=== PATIENT | male | born 1970 | race Caucasian/White ===

== ENCOUNTER 2018-05-24 00:50 | Outpatient (CLI) | payer BC, SELFPAY ==
--- NOTE | 2018-05-24 14:42 | DI.MRI_ITS ---
SYMPTOMS/DIAGNOSIS: NECK PAIN WITH ARM NUMBNESS MRI OF THE CERVICAL SPINE: Routine noncontrast examination was performed. There is mild patient motion artifact. There is normal signal in the spinal cord. No evidence of tonsillar ectopia is present. At C6-C7, there is a mild diffuse disc bulge, but no central spinal canal stenosis is seen. It appears to be eccentric to the right, causing moderate right neural foraminal stenosis. No significant left neural foraminal stenosis is present. The remaining disc levels show no focal disc herniation, central spinal canal or neural foraminal stenosis. Marrow signal is within normal limits. IMPRESSION: C6-C7 asymmetric disc bulge to the right and right lateral soft tissues causing moderate right neural foraminal stenosis.
== END 2018-05-24 01:10 ==
PROVIDERS: PCP Family Medicine; Visit Provider Family Medicine
DX: M54.2 Cervicalgia (principal); R20.0 Anesthesia of skin; M50.223 Other cervical disc displacement at C6-C7 level; M48.02 Spinal stenosis, cervical region
CPT/HCPCS: 72141

== ENCOUNTER 2018-08-26 16:50 | Outpatient (CLI) | payer BC, SELFPAY ==
--- NOTE | 2018-08-26 16:03 | DI.RAD_ITS ---
SYMPTOM/DIAGNOSIS: RT SHOULDER PAIN, M25.511 RIGHT SHOULDER: Five views. Mild hypertrophic changes are seen at the acromioclavicular joint. The glenohumeral joint is well maintained. The bones are intact and normally mineralized. The soft tissues are unremarkable. IMPRESSION: Mild degenerative changes of the right AC joint.
== END 2018-08-26 17:10 ==
PROVIDERS: PCP Family Medicine; Visit Provider Neurological Surgery
DX: M25.511 Pain in right shoulder (principal); M19.011 Primary osteoarthritis, right shoulder
CPT/HCPCS: 73030

== ENCOUNTER 2018-09-09 00:43 | Outpatient (CLI) | payer BC, SELFPAY ==
--- NOTE | 2018-09-09 08:45 | DI.MRI_ITS ---
SYMPTOM/DIAGNOSIS: RT SHOULDER PAIN WITH RADIATING PAIN, RT ARM NUMBNESS, R20.0, M25.511 RIGHT SHOULDER MRI: Routine noncontrast examination was performed. There are no priors for comparison. The supraspinatus, infraspinatus and teres minor tendons are intact. No evidence of a tear is seen. There is mild intermediate signal and thickening of the subscapularis tendon which may represent tendinosis. The muscles show normal signal and size. No significant muscular fatty atrophy is appreciated. The biceps tendon has a normal appearance and location. The glenoid labrum appears unremarkable on this noncontrast examination. The ligaments are intact. There are mild hypertrophic changes seen at the acromioclavicular joint. Marrow signal is otherwise within normal limits. No evidence of an occult fracture or avascular necrosis is identified. No soft tissue mass or focal fluid collections are appreciated. IMPRESSION: 1. Subscapularis tendinosis. No evidence of a rotator cuff tear, 2. Mild osteoarthritis of the right acromioclavicular joint.
== END 2018-09-09 01:03 ==
PROVIDERS: PCP Family Medicine; Visit Provider Neurological Surgery
DX: M25.511 Pain in right shoulder (principal); M75.81 Other shoulder lesions, right shoulder; M19.011 Primary osteoarthritis, right shoulder; R20.0 Anesthesia of skin
CPT/HCPCS: 73221

== ENCOUNTER 2019-03-06 00:36 | Outpatient (CLI) | payer OTHER, SELFPAY ==
--- NOTE | 2019-03-06 08:42 | DI.MRI_ITS ---
SYMPTOM/DIAGNOSIS: BILATERAL RADICULOPATHY, LOW BACK PAIN M54.5 LUMBAR MRI: The study was carried out according to the usual protocol. Sagittal T2, sagittal T-1 and sagittal T-1 STIR and T2 axial and T2 axial MSMA and T-1 coronal pulsed sequences were performed. At L1-2 the disc is normal. The facet joints are intact. There is no evidence of spinal stenosis. At L2-3 there is no evidence of disc pathology. The facet joints are intact and there is no evidence of spinal stenosis. At L3-4 diminished disc signal would be consistent with partial desiccation. A small disc bulge is noted. There are mild facet joint degenerative changes and no evidence of spinal stenosis. At L4-5 diminished disc signal is identified. A small subligamentous disc herniation is evident. There is moderate facet joint DJD and no evidence of spinal stenosis. At L5-S1 diminished disc signal is also noted. There is no evidence of a disc herniation. Moderate facet joint DJD is apparent and there is no evidence of significant spinal stenosis. No intrinsic abnormality involving the lower dorsal cord conus or phylum terminale is seen.. SUMMARY: Findings consistent with degenerative disc disease and DJD with no evidence of significant spinal stenosis.
== END 2019-03-06 00:56 ==
PROVIDERS: PCP Family Medicine; Visit Provider Nurse Practitioner Family
DX: M54.5 Low back pain (principal); M54.17 Radiculopathy, lumbosacral region; M51.17 Intervertebral disc disorders with radiculopathy, lumbosacral region; M47.27 Other spondylosis with radiculopathy, lumbosacral region
CPT/HCPCS: 72148

== ENCOUNTER 2019-04-05 20:51 | Inpatient (IN) | payer BC, SELFPAY ==
[2019-04-05] VITALS (22 sets, daily range): BP systolic 115–138; BP diastolic 67–91; PULSE 79–120; RESP 12–28; TEMP 37.2; O2SAT 94–99
--- NOTE | 2019-04-05 21:07 | DI.CT_ITS ---
SYMPTOM/DIAGNOSIS: HEMOPTYSIS, RIGHT SIDED CHEST PAIN CTA CHEST: 04/05 CT angiography was performed with multi slice acquisition and multi planar and 3D reconstruction. CT angiography of the chest was performed with a bolus infusion of 100 cc Omnipaque 350. Images obtained through the upper abdomen show unremarkable appearance of visualized portions of liver, spleen, pancreas, adrenals and kidneys. The thoracic aorta is normal in appearance. There are multiple pulmonary emboli seen bilaterally predominantly in the lower lobe, pulmonary arterial circulation right greater than left and these involve segmental and subsegmental vessels No central pulmonary embolus identified. There are peripheral streaky areas of increased radiodensity in areas of atelectasis and/or consolidation in the right lung base with an associated small right pleual effusion. The findings are suspicious for pulmonary infarction. Otherwise, lungs are generally clear. No mediastinal or hilar adenopathy. CONCLUSION: Findings consistent with multiple pulmonary emboli. Findings were communicated to Dr. Jacinto in the E.R. 4 p.m. 04/06
--- NOTE | 2019-04-05 21:08 | W.ED.GENAD ---
Discharge Plan Disposition Patient Disposition: [facility] INPATIENT Condition: Improving Discharge Details Chief Complaint: Chest Pain Clinical Impression: Community acquired pneumonia, Cough with hemoptysis Primary Care Provider: Jarvis Camilo ED Provider: Amari Juarez Home Meds and New Rx's Prescriptions: No Action sildenafil [Viagra] 100 mg tablet 100 mg PO DAILY PRN (Reason: erectile dysfunction) Qty: 12 RF: 10 bupropion HCl [Wellbutrin SR] 150 mg tablet sustained-release 12 hr 150 mg PO QAM Qty: 90 RF: 3 Hold Instructions: None citalopram 20 mg tablet 20 mg PO BID Qty: 180 RF: 3 sumatriptan succinate 100 mg tablet 100 mg PO as directed Qty: 6 RF: 2 Shingrix Adjuvant Component-PF suspension 0.5 ml IM DAILY Qty: 0.5 RF: 1 lidocaine 5 % adhesive patch,medicated 1 patch TP DAILY Qty: 15 RF: 0 cyclobenzaprine 5 mg tablet 5 mg PO TID PRN (Reason: muscle spasm) Qty: 14 RF: 0 calcium carbonate [Tums Ultra] 400 MG tablet,chewable 400 mg PO PRN RF: 0 Medical Decision Making 49-year-old male with no past medical history who presents today for evaluation of right-sided chest pain and hemoptysis. Patient is a known tobacco smoker for greater than 35 years. Symptoms began yesterday his right-sided chest pain is both positional with an associated cough. Hemoptysis began yesterday. No exertional component. He denies any falls or recent trauma. Notable pleuritic component. Physical exam demonstrates mild to moderate tachycardia at 1 10-1 20. Intact radial pulses bilaterally, brisk capillary refill in all extremities, normal neurologic exam for upper and lower extremities. Normal vascular exam for upper and lower extremities. Bedside limited ultrasound shows no signs of significant right heart strain or pericardial effusion. Unable to visualize aortic arch. Differential includes PE, dissection, severe bronchitis or pneumonia versus malignancy. We will get a CT angios for further evaluation of the chest, perform a cardiac work-up, rehydrate and reassess. 11 PM Patient's laboratory work-up has returned, mild elevation in white count, mild left shift. No bandemia. Renal function stable, electrolytes benign. Troponin EKG unremarkable. VBG shows no signs of CO2 retention. CT scan results have returned and per virtual radiology show no evidence of PE or dissection. There is scattered irregular groundglass linear opacities in that are noted that are suspicious for multifocal pneumonia. In conjunction with the patient's white count I am concerned for infectious etiology. We will start Rocephin and doxycycline. We did ambulate the patient oxygen saturation remained stable however heart rate increased back up to 120. While resting his heart rate is in the 90s. Although the patient is feeling better I do feel that with his white count, notable CT findings, his hemoptysis and his notably increased heart rate I do feel that he would benefit from inpatient admission. I discussed the case with the hospitalist Dr. Mora, he agrees with assessment and plan. I have extensively reviewed the treatment plan with the patient. I have addressed all patient concerns at this time. I have also discussed the plan with the admitting physician and they agree with the current assessment and plan and have agreed to assume responsibility for the patient. All parties demonstrate verbal understanding and agreement with our assessment and plan at this time. EKG 20: 56 Rate 114, FL 164, QTc 430, QRS 110, sinus tachycardia, incomplete right bundle branch block, inverted T wave in V1, no significant ST elevations or depressions. No significant Q waves no evidence of STEMI IMPRESSION: 1. Motion artifact limits evaluation of the basilar subsegmental pulmonary arteries. Otherwise no pulmonary embolism. 2. Scattered irregular groundglass and linear right lung consolidation suspicious for multifocal infectious/inflammatory process such as pneumonia. Correlate clinically. 3. Emphysematous changes. Thank you for allowing us to participate in the care of your patient. Dictated and Authenticated by: Harvinder Bear MD 04/05/2019 10:34 PM Eastern Time ([place] & [place]) HPI General Date/Time Provider Initiated Documentation: 04/05/19 20:56. HPI Narrative: This is a 49-year-old male who denies any significant medical problems aside for occasional headaches, and mild depression who presents today for evaluation of right-sided chest pain. Patient states that yesterday afternoon while eating dinner he developed mild to moderate right-sided pain in his lung, made worse with breathing. He has also had an associated mild cough for the last 3 to 4 days. It was nonproductive until last night when he began developing hemoptysis. Pain is positional, worse with sitting upright, improved by laying on the right-hand side. He does have a long history of tobacco abuse for greater than 35 years. He denies any arm neck or shoulder pain. He denies any history of cardiac disease. He denies any personal family history of aortic dissection or PE. Denies PE risk factors such as recent long car rides, immobilization, recent surgery, prior history of DVT or PE, family history of PE or DVT, morbid obesity, exogenous estrogen, history of cancer. He denies any tearing or ripping sensation in his chest. He denies any recent weight loss. 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 Since then he denies any exertional chest pain or dyspnea except for his symptoms today and yesterday. Patient denies any other complaints at this time. Related Data Home Medications Medication Instructions Recorded Confirmed calcium carbonate [Tums Ultra] 400 mg PO PRN tab.chew 09/25/14 04/05/19 sildenafil 100 mg tablet 100 mg PO DAILY PRN #12 tab 05/14/18 04/05/19 bupropion HCl 150 mg tablet,12 hr 150 mg PO QAM #90 tab 07/19/18 04/05/19 sustained-release citalopram 20 mg tablet 20 mg PO BID #180 tab-cap 07/19/18 04/05/19 adjuvant AS01B (PF)vial 1 of 2 0.5 ml IM DAILY #0.5 ml 11/15/18 11/15/18 sumatriptan succinate 100 mg tablet 100 mg PO as directed #6 tab-cap 11/15/18 04/05/19 lidocaine 5 % topical patch 1 patch TP DAILY #15 each 02/19/19 04/05/19 cyclobenzaprine 5 mg tablet 5 mg PO TID PRN #14 tab 03/21/19 04/05/19 Previous Rx's Medication Instructions Recorded sildenafil 100 mg tablet 100 mg PO DAILY PRN #12 tab 05/14/18 bupropion HCl 150 mg tablet,12 hr 150 mg PO QAM #90 tab 07/19/18 sustained-release citalopram 20 mg tablet 20 mg PO BID #180 tab-cap 07/19/18 adjuvant AS01B (PF)vial 1 of 2 0.5 ml IM DAILY #0.5 ml 11/15/18 sumatriptan succinate 100 mg tablet 100 mg PO as directed #6 tab-cap 11/15/18 lidocaine 5 % topical patch 1 patch TP DAILY #15 each 02/19/19 cyclobenzaprine 5 mg tablet 5 mg PO TID PRN #14 tab 03/21/19 Allergies Allergy/AdvReac Type Severity Reaction Status Date / Time aspartame Allergy Severe facial Verified 04/05/19 21:04 numbness; muscle spasms ranitidine HCl [From Zantac] AdvReac Severe Chest pain Verified 04/05/19 21:04 ibuprofen AdvReac Unknown ABDOMINAL Verified 04/05/19 21:04 PAIN General Stated Complaint: Chest Pain RAYMOND: 3 Review of Systems Review of Systems All systems reviewed & are unremarkable except as noted in HPI and below PFSH Medical History (Updated 04/05/19 @ 20:59 by Estelita Babin) Cervical disc disorder (Acute) Erectile dysfunction (Acute) GERD (gastroesophageal reflux disease) (Chronic) Migraine (Chronic) Social History Smoking/Tobacco Use Status: Current every day Tobacco Type: cigarettes Quit status: has quit before Second Hand Exposure: Yes Alcohol Intake: current Alcohol Intake frequency: holidays/special occasions only Alcohol type: hard liquor Drug use: Never Substance use type: does not use Caregiver/Support person: No Household members: spouse Housing: house Communication Needs: None Do you need help understanding health information?: Rarely Pets and animals: Yes Pets and animals: dog(s) Sexually active: Yes Do you think of yourself as: straight/heterosexual Current gender identity: male What is your relationship status?: How often do you talk on the phone with friends or family?: three or more times per week How often do you get together with friends or relatives?: once per week How often do you attend episcopalian or oriental orthodox services?: decline to answer Do you belong to any clubs or organized social groups?: no Panel score (0-1 are the most socially isolated patients): 2 What type of physical activity do you participate in: none Seatbelt use: always Helmet use: Yes Drive intox or ride w/intox transit driver: No Exam Narrative Exam Narrative: 1.Const: Well-nourished, Well-developed, appearing stated age 2.Eyes: PERRL, no conjunctival injection, and symmetrical lids. 3.ENT: Atraumatic external nose and ears. Moist MM. Neck: Symmetric, trachea midline, No thyromegaly. 4.CVS: +S1/S2, No murmurs or gallops. Peripheral pulses 2+ and equal in all extremities. Brisk capillary refill in all extremities. Radial pulses +2 bilaterally. 5.RESP: Unlabored respiratory effort. Clear to auscultation bilaterally. No wheezes rales or rhonchi. 6.GI: Soft, Nontender/Nondistended, No hepatosplenomegaly. No guarding or rebound. 7.MSK: Normocephalic/Atraumatic, Extremities w/o deformity or ttp No cyanosis or clubbing, Normal movement of all extremities. No calf tenderness. 8.Skin: Warm, Dry. No rashes or lesions. 9.Neuro: internal audit consultant II-XII grossly intact. Sensation grossly intact, no focal neurologic deficits. 10.Psych: (AAO) x3. Appropriate mood and affect Course Vital Signs Temperature 37.2 C 04/05/19 20:54 Pulse 120 H 04/05/19 20:54 Respiratory Rate 20 04/05/19 20:54 Blood Pressure 132/79 04/05/19 20:54 Pulse Oximetry 94 L 04/05/19 20:54 Temperature 37.2 C 04/05/19 20:54 Temperature Source Skin 04/05/19 20:54 Pulse 120 H 04/05/19 20:54 Respiratory Rate 20 04/05/19 20:54 Blood Pressure 132/79 04/05/19 20:54 Pulse Oximetry 94 L 04/05/19 20:54 Pain Level 10 04/05/19 20:54 Lab/Test Results Lab/Test Results: 04/05/19 21:07 Blood Blood Culture - Pending 04/05/19 21:07 Blood Blood Culture - Pending
[2019-04-05 21:17] LABS: BE (Venous) 4.7 mmol/L (-3-3); HCO3 (Venous) 28 mmol/L (22-28); HCT 44.8 % (40.0-50.0); HGB 15.1 g/dL (13.5-17.5); Mean Corp. HGB Concentration 33.7 g/dL (32.0-36.0); Mean Corpuscular Hemoglobin 32.1 pg (27.0-33.0); Mean Corpuscular Volume 95.1 fL (80-95); Mean Platelet Volume 10.2 fL (8.0-11.0); O2 Sat (Venous) 88 % (70-80); Platelet Count 270 x1000/uL (130-400); RBC 4.71 m/cumm (4.50-6.00); RBC Distribution Width 13.4 % (11.8-14.1); TCO2 (Venous) 25 mmol/L (22-29); White Blood Cell Count 12.48 k/cumm (4.4-10.8); pCO2 (Venous) 39 mm/Hg (34-47); pH (Venous) 7.47 (7.32-7.43); pO2 (Venous) 50 mm/Hg (28-44)
[2019-04-05 21:19] LABS: Lactate 1.1 mmol/L (0.6-1.4)
[2019-04-05] MEDS: Lidocaine 5% Patch 1 PATCH TP (21:24)
[2019-04-05] MEDS: Normal Saline 1,000 ML 1000 ML IV ×2 (21:25→23:56)
[2019-04-05 21:31] LABS: Absolute Monocyte Count 1.37 k/cumm (0.11-0.7); Absolute Neutrophil Count 7.99 k/cumm (1.2-6.7)
[2019-04-05 21:32] LABS: Absolute Eosinophil Count 0.12 k/cumm (0.0-0.7); Diff Comment Manual Differential; PTT Activated 25.5 sec (21.0-31.4); Prothrombin Time 9.6 sec (9.3-11.0); RBC Morphology Normal
[2019-04-05 21:42] LABS: ALT 23 U/L (12-78); AST 13 U/L (15-37); Albumin 3.5 g/dL (3.4-5.0); Alkaline Phosphatase 51 U/L (46-116); Anion Gap 9.9 mmol/L (3-11); BUN 15 mg/dL (7-18); Bilirubin, Total 0.3 mg/dL (0.2-1.0); CO2 26.1 mmol/L (21.0-32.0); CREATININE 0.98 mg/dL (0.70-1.30); Calcium 9.2 mg/dL (8.5-10.1); Chloride 103 mmol/L (98-107); Glucose 124 mg/dL (70-100); NT-proBNP 62 pg/mL; Potassium 3.9 mmol/L (3.5-5.1); Sodium 139 mmol/L (136-145); TSH (W/Ref FT4) 2.14 uIU/mL (0.36-3.74); Total Protein 7.4 g/dL (6.4-8.2)
[2019-04-05 21:44] LABS: Troponin I < 0.05 ng/mL (0.00-0.06)
[2019-04-05] MEDS: MORPHine 10 MG/ML VIAL 4 MG IVP ×2 (21:52→23:49)
[2019-04-05] MEDS: Omnipaque 350 MG/ML 100 ML BTL IJ (22:19)
--- NOTE | 2019-04-05 22:34 | DI.VRAD_ITS ---
EXAM: CT Angiography Chest With Contrast EXAM DATE/TIME: 04/05/2019 9:08 PM CLINICAL HISTORY: 49 years old, male; Right-sided chest pain; Patient HX: Hemoptysis; R sided chest pain TECHNIQUE: Imaging protocol: Axial computed tomographic angiography images of the chest with intravenous contrast using CT angiography protocol. Coronal and sagittal reformatted images were created and reviewed. 3D rendering: MIP reconstructed images were created and reviewed. COMPARISON: CR (CHEST, RT) 12/21/2015 12:37 PM FINDINGS: Pulmonary arteries: Pulmonary artery opacification is adequate. Motion artifact limits evaluation of the basilar subsegmental pulmonary arteries. Otherwise no pulmonary embolism. Aorta: No aortic aneurysm. No aortic dissection. Thyroid: No mass. Lungs: There are moderate bilateral upper lobe predominant emphysematous changes. There is irregular groundglass and linear consolidation within the right middle and lower lobes, lesser extent of the inferior right upper lobe. No consolidation or mass within the left lung. Pleural space: There is trace right pleural effusion. No pneumothorax or pleural effusion. Heart: No cardiomegaly. No pericardial effusion. Lymph nodes: Unremarkable. No pathologically enlarged lymph nodes. Bones/joints: Unremarkable. No acute fracture. Soft tissues: No focal abnormality. IMPRESSION: 1. Motion artifact limits evaluation of the basilar subsegmental pulmonary arteries. Otherwise no pulmonary embolism. 2. Scattered irregular groundglass and linear right lung consolidation suspicious for multifocal infectious/inflammatory process such as pneumonia. Correlate clinically. 3. Emphysematous changes. Dictated and Authenticated by: Harvinder Bear MD. Ordering:PARAG Fitzpatrick MD
[2019-04-05] MEDS: cefTRIAXone 1 GM/50 ML BAG IVPB (23:18)
[2019-04-05] MEDS: DOXYCYCLINE 100 MG in Normal Saline 100 ML IVPB (23:49)
[2019-04-06] VITALS (14 sets, daily range): BP systolic 105–134; BP diastolic 65–91; PULSE 74–109; RESP 16–20; TEMP 36.4–37.2; O2SAT 93–99
--- NOTE | 2019-04-06 00:05 | W.PM.HP.N ---
Date of service: 04/06/19 Time of Service: 00:06 Assessment and Plan (1) Community acquired pneumonia of right lung: Current visit: Yes Status: Acute continue Ceftriaxone but at increased dose of 2 gm Q24h, and doxycycline 100 mg iv Q12hr (macrolide and levaquin are relative contraindications w/ his use of citalopram d/t QTC prolongation and he already has an IVCD on his EKG). I will add iv corticosteroids to help w/ the acute inflammation particularly with his pleurisy. Check sputum and blood cultures and procalcitonin levels as well as checking atypical studies (i.e. Legionella and Mycoplasma). He will need follow up imaging of his chest once his acute pneumonic symptoms resolve as there is concern for underlying malignancy given his weight loss and his hemoptysis. Also he is due for follow up c-scope once his pneumonia clears (it has been 5 yrs since his c-scope and he has hx of colon polyps and FH of colon CA). Qualifiers: Lung location: lower lobe of lung Qualified Code(s): J18.1 - Lobar pneumonia, unspecified organism (2) Pleurisy: Current visit: Yes Status: Acute narcotic analgesic (cough medications w/ phenergan and codeine) and iv corticosteroids. History of Present Illness Chief Complaint: cough, shortness of breath, hemoptysis Narrative: 49-year-old male smoker presents to the emergency department with acute right-sided pleuritic chest pain along with hemoptysis that began yesterday. This is also associated with shortness of breath. Patient states he had brief similar episode back around February 12 in which she had some pleuritic chest pain and a cough that went away after 3 or 4 days but not associated with any hemoptysis. He said he had another episode about 3 or 4 weeks ago but feels that it was mitigated by the steroids that he was put on for his ruptured disc. He has been followed in occupational medicine for a back injury which she has had low back pain over the lumbar region with radicular pain down his right leg. His past medical history also includes a history of migraine headaches as well as a [id number] history of smoking as well as a lumbar degenerative disc disease and a herniated L4-L5 disc herniation. Patient has no exertional component to his chest pain. He has developed exertional dyspnea as well as dyspnea at rest. His right-sided chest pain is worse with coughing or deep breathing or with sitting up. Pain is better when he is lying on his right side. There is been no recent contacts with respiratory illness although he noted that 1 of his coworkers was sick with pneumonia back in November. Patient denies any history of pulmonary emboli. He also denies any family history for PE or DVT and no family history for aortic aneurysms. There is a family history for colon cancer in his paternal grandfather. Patient himself has had a history of colon polyps and had a colonoscopy with a polypectomy about 5 years ago. Work-up in the emergency room demonstrate a leukocytosis of 12,480 with an increase in PMNs of 7900. Blood lactate level is normal at 1.1 and troponin was less than 0.05. CTA of the chest was performed and showed no pulmonary emboli. The basilar subsegmental arteries were not as well visualized due to motion artifact. He has evidence of emphysema as well as right-sided pneumonic consolidation with scattered irregular groundglass opacities and linear consolidation consistent with pneumonia. Treatment in the emergency room include obtaining blood cultures as well as initiation of ceftriaxone 1 g IV and doxycycline 100 mg. Patient is now admitted for treatment of a community-acquired pneumonia. Review of Systems Constitutional Reports body ache(s), Denies chills, Reports fatigue, Denies fever(s), Reports headache(s) and Reports weight loss Eyes Reports itchy eyes and Reports photophobia ENT Denies otalgia, Reports headache(s), Reports nasal congestion, Reports nasal discharge and Reports sinus pressure Cardiovascular Reports chest pain at rest, Reports rapid heart rate, Reports dyspnea and Reports dyspnea on exertion Respiratory Reports change in phlegm color, Reports cough, Reports hemoptysis, Reports excessive phlegm production, Reports pain on inspiration, Reports pain with cough, Reports dyspnea and Reports dyspnea on exertion Gastrointestinal Denies abdominal pain, Denies melena, Denies hematochezia and Reports constipation Genitourinary Reports system reviewed and no additional complaints, except as docu Musculoskeletal Reports back pain, Reports radiating pain into limb (right leg down to the knee) and Reports tingling Integumentary/Breasts Reports system reviewed and no additional complaints, except as docu Neurologic Reports headache(s), Reports radicular pain and Reports tingling Psychiatric Reports system reviewed and no additional complaints, except as docu Endocrine Reports fatigue and Reports heat intolerance Hematologic/Lymphatic Reports system reviewed and no additional complaints, except as docu Allergic/Immunologic Reports itchy eyes PFSH Medical History Benign colon polyp (Acute) Cervical disc disease (Chronic) Cervical disc disorder (Acute) Duodenitis (Inactive) Erectile dysfunction (Acute) GERD (gastroesophageal reflux disease) (Chronic) Migraine (Acute 01/09/17) Migraine (Chronic) Surgical History Colonoscopy - MAC Family History Father CAD (coronary artery disease) Heart disease Alzheimer's dementia Brother Hyperlipidemia Depression Brother Depression Hyperlipidemia Essential hypertension Maternal Grandfather Essential hypertension Maternal Grandmother Diabetes GREAT GRANDFATHER Myocardial infarction Paternal Grandfather Liver cirrhosis Colon cancer Paternal Grandmother Stroke Social History (Updated 04/06/19 @ 01:33 by Augustus Mora) Smoking/Tobacco Use Status: Current every day Tobacco Type: cigarettes Smoking packs per day: 1 Years smoked: 35 Quit status: has quit before Second Hand Exposure: Yes Alcohol Intake: current Alcohol Intake frequency: holidays/special occasions only Alcohol type: hard liquor Drug use: Never Substance use type: does not use Caregiver/Support person: No Household members: spouse Housing: house Communication Needs: None Do you need help understanding health information?: Rarely Pets and animals: Yes Pets and animals: dog(s) Sexually active: Yes Do you think of yourself as: straight/heterosexual Current gender identity: male What is your relationship status?: How often do you talk on the phone with friends or family?: three or more times per week How often do you get together with friends or relatives?: once per week How often do you attend quaker or temple services?: decline to answer Do you belong to any clubs or organized social groups?: no Panel score (0-1 are the most socially isolated patients): 2 What type of physical activity do you participate in: none Seatbelt use: always Helmet use: Yes Drive intox or ride w/intox route salesman and driver: No Meds Home Medications Medication Instructions Recorded Confirmed Type calcium carbonate [Tums Ultra] 400 mg PO PRN tab.chew 09/25/14 04/05/19 History sildenafil 100 mg tablet 100 mg PO DAILY PRN #12 tab 05/14/18 04/05/19 Rx bupropion HCl 150 mg tablet,12 hr 150 mg PO QAM #90 tab 07/19/18 04/05/19 Rx sustained-release citalopram 20 mg tablet 20 mg PO BID #180 tab-cap 07/19/18 04/06/19 Rx adjuvant AS01B (PF)vial 1 of 2 0.5 ml IM DAILY #0.5 ml 11/15/18 11/15/18 Rx sumatriptan succinate 100 mg tablet 100 mg PO as directed #6 tab-cap 11/15/18 04/05/19 Rx lidocaine 5 % topical patch 1 patch TP DAILY #15 each 02/19/19 04/05/19 Rx cyclobenzaprine 5 mg tablet 5 mg PO TID PRN #14 tab 03/21/19 04/05/19 Rx Allergies Allergy/AdvReac Type Severity Reaction Status Date / Time aspartame Allergy Severe facial Verified 04/05/19 21:04 numbness; muscle spasms ranitidine HCl [From Zantac] AdvReac Severe Chest pain Verified 04/05/19 21:04 ibuprofen AdvReac Unknown ABDOMINAL Verified 04/05/19 21:04 PAIN Exam Const General: cooperative and ill appearing acutely Orientation: alert, awake and oriented x3 HENMT Head: normal to inspection, no palpable skull fracture and normocephalic Ears: hearing grossly normal bilaterally and TM's normal bilaterally General nose exam: external nose normal, nares normal and nasal discharge purulent Face and sinus: normal facial exam Mouth: oral mucosae normal and oropharynx normal Throat: posterior oropharynx normal Eyes General: appearance normal, both eyes and all related structures Alignment and Position: alignment normal Periorbital: periorbital findings normal Eyelids: eyelids normal Conjunctivae: conjunctivae normal Sclera: sclerae normal Cornea: corneas normal Pupils: PERRL EOM: EOM intact bilaterally Direct ophthalmoscopy: normal light reflex Neck Neck: normal visual inspection, full ROM and no JVD Carotids: normal carotid upstroke Lymphatic: no lymphadenopathy noted Resp Effort & Inspection: normal respiratory effort and able to speak in complete sentences Auscultation: rales on the right Cardio Jugular venous pressure: no JVD Palpation: normal PMI Rate: regular rate Rhythm: regular rhythm Heart Sounds: S1 normal, S2 normal, normal, physiologic split S2, no gallops, no murmurs and no rubs Pulses: normal peripheral pulses GI Inspection: normal to inspection Palpation: soft and no hepatosplenomegaly Percussion: normal to percussion Auscultation: normal bowel sounds Neuro General: alert, awake, oriented x3, moves all extremities and no focal motor deficits Cranial Nerves: PERRL, EOM intact bilaterally, no nystagmus, facial strength normal and tongue midline Cognition: normal cognition Speech: speech normal Motor: muscle tone normal throughout, strength 5/5 throughout and no movement abnormalities noted Sensory Exam: no sensory deficits noted Extrem General: normal to inspection, normal capillary refill, no clubbing, cyanosis or edema and no calf tenderness Psych Appearance: grossly normal Mental Status: mental status grossly normal Speech and Movement: speech and movement normal Mood: congruent mood Affect: normal affect Attitude: cooperative Thought Process: normal Thought Content: normal Insight: insight good Judgment: judgment good Results Imaging EKG: image reviewed (sinus tachycardia rate of 114 bpm, no ischemic ST-T changes, non-specific IVCD) Imaging Studies: EXAM: CT Angiography Chest With Contrast EXAM DATE/TIME: 04/05/2019 9:08 PM IMPRESSION: 1. Motion artifact limits evaluation of the basilar subsegmental pulmonary arteries. Otherwise no pulmonary embolism. 2. Scattered irregular groundglass and linear right lung consolidation suspicious for multifocal infectious/inflammatory process such as pneumonia. Correlate clinically. 3. Emphysematous changes. Dictated and Authenticated by: Harvinder Bear MD. Labs : 04/05/19 21:00 04/05/19 21:00 Laboratory Results - last 24 hr 04/05/19 04/05/19 04/05/19 21:00 21:00 21:00 WBC 12.48 H RBC 4.71 Hgb 15.1 Hct 44.8 MCV 95.1 H MCH 32.1 MCHC 33.7 RDW 13.4 Plt Count 270 MPV 10.2 Immature Gran % See Differential Neutrophils % 64.0 Lymphocytes % 24.0 Monocytes % 11.0 Eosinophils % 1.0 Basophils % 0.0 Absolute Neutrophils 7.99 H Absolute Lymphocytes 3.00 Absolute Monocytes 1.37 H Absolute Eosinophils 0.12 Absolute Basophils 0.00 Differential Comment Manual differential RBC Morphology Normal PT INR APTT VBG pH VBG pCO2 VBG pO2 VBG HCO3 VBG Total CO2 VBG O2 Saturation VBG Base Excess Sodium 139 Potassium 3.9 Chloride 103 Carbon Dioxide 26.1 Anion Gap 9.9 BUN 15 Creatinine 0.98 Estimated GFR/1.73 m2 >= 60.00 Glucose 124 H Lactate 1.1 Calcium 9.2 Total Bilirubin 0.3 AST 13 L ALT 23 Alkaline Phosphatase 51 Troponin I < 0.05 NT-Pro-B Natriuret Pep 62 Total Protein 7.4 Albumin 3.5 TSH 2.14 04/05/19 04/05/19 21:00 21:00 WBC RBC Hgb Hct MCV MCH MCHC RDW Plt Count MPV Immature Gran % Neutrophils % Lymphocytes % Monocytes % Eosinophils % Basophils % Absolute Neutrophils Absolute Lymphocytes Absolute Monocytes Absolute Eosinophils Absolute Basophils Differential Comment RBC Morphology PT 9.6 INR 1.0 APTT 25.5 VBG pH 7.47 H VBG pCO2 39 VBG pO2 50 H VBG HCO3 28 VBG Total CO2 25 VBG O2 Saturation 88 H VBG Base Excess 4.7 H Sodium Potassium Chloride Carbon Dioxide Anion Gap BUN Creatinine Estimated GFR/1.73 m2 Glucose Lactate Calcium Total Bilirubin AST ALT Alkaline Phosphatase Troponin I NT-Pro-B Natriuret Pep Total Protein Albumin TSH Last Vital Signs Temp 37.2 C 04/05/19 20:54 Pulse 93 H 04/05/19 22:09 Resp 17 04/05/19 22:09 BP 135/83 04/05/19 22:09 Pulse Ox 94 L 04/05/19 21:46
[2019-04-06 00:58] LABS: Troponin I < 0.05 ng/mL (0.00-0.06)
[2019-04-06 01:07] LABS: Procalcitonin < 0.1 ng/mL
[2019-04-06] MEDS: cefTRIAXone 1 GM/50 ML BAG IVPB (01:22)
[2019-04-06] MEDS: Normal Saline 1,000 ML 100 ML IV (01:23)
[2019-04-06] MEDS: guaiFENesin 600 MG TABCR 1200 MG PO ×3 (01:29→20:21)
[2019-04-06] MEDS: methylPREDNISolone SUCC 125 MG VIAL 80 MG IVP (02:11)
[2019-04-06] MEDS: Normal Saline Flush 10 ML SYR IVP ×3 (02:12→21:39)
--- NOTE | 2019-04-06 04:51 | NUR.NOTE ---
Patient was admitted to the Med-Surg unit from the ER with a history of right sided chest pain that is not being relieved by pain medications. Patient is AxOx3 assessment done and charted.
[2019-04-06 07:23] LABS: Abs Immature Grans 0.03 k/cumm (0.0-0.09); Absolute Eosinophil Count 0.32 k/cumm (0.0-0.7); Absolute Monocyte Count 0.62 k/cumm (0.11-0.7); Absolute Neutrophil Count 10.58 k/cumm (1.2-6.7); Basophils % 0.2; Eosinophils % 2.5; HCT 45.9 % (40.0-50.0); HGB 15.4 g/dL (13.5-17.5); Immature Grans % 0.2; Mean Corp. HGB Concentration 33.6 g/dL (32.0-36.0); Mean Corpuscular Volume 95.2 fL (80-95); Mean Platelet Volume 10.5 fL (8.0-11.0); Monocytes % 4.9; Neutrophils % 83.2; Platelet Count 223 x1000/uL (130-400); RBC 4.82 m/cumm (4.50-6.00); RBC Distribution Width 13.5 % (11.8-14.1); White Blood Cell Count 12.72 k/cumm (4.4-10.8)
[2019-04-06 07:25] LABS: Absolute Basophil Count 0.03 k/cumm (0.0-0.2); Absolute Lymphocyte Count 1.14 k/cumm (1.2-3.4); Anion Gap 11.7 mmol/L (3-11); BUN 11 mg/dL (7-18); CO2 22.3 mmol/L (21.0-32.0); Calcium 8.9 mg/dL (8.5-10.1); Chloride 106 mmol/L (98-107); Glucose 122 mg/dL (70-100); Potassium 4.6 mmol/L (3.5-5.1); Sodium 140 mmol/L (136-145)
[2019-04-06 07:26] LABS: Troponin I < 0.05 ng/mL (0.00-0.06)
[2019-04-06] MEDS: Benzonatate 200 MG CAP PO ×3 (08:25→20:21)
[2019-04-06] MEDS: Citalopram 20 MG TAB PO (08:26)
[2019-04-06] MEDS: buPROPion-XL 150 MG TABCR PO (08:26)
--- NOTE | 2019-04-06 10:15 | W.PM.PROGNOT ---
Date of Service Date of service: 04/06/19 Time of Service: 10:15 Assessment and Plan (1) Community acquired pneumonia of right lung: Current visit: Yes Status: Acute Evidence of right sided infiltrates by CT. Patient with reported dyspnea, hemoptysis, and pleuritic chest pain. - Continue CAP coverage with Ceftriaxone, Doxycycline day #1. - Await Blood and Sputum culture results. - Continue steroids but change to PO Prednisone. - Continue anti-tussives. - Given tobacco history will ensure follow-up imaging as outpatient to ensure complete resolution and lack of other pathology. Qualifiers: Lung location: lower lobe of lung Qualified Code(s): J18.1 - Lobar pneumonia, unspecified organism (2) DVT prophylaxis: Current visit: Yes Status: Acute Hold off chemic DVT prophylaxis given current complaints of hemoptysis, and continue SCDs. Subjective Interval history since last seen: 49-year-old man with a history of tobacco use, admitted from [facility] Emergency Department on 04/05 with a diagnosis of CAP. Mr. Ortiz has a Past Medical History significant for chronic tobacco use, COPD, migraines, and back pain with radicular symptoms. He presented to the ED with an acute onset pleuritic chest pain, dyspnea, and cough with associated Hemoptysis. He also endorsed ill contact with a coworker who was sick with pneumonia a few months back. Work-up in the ED was significant for leukocytosis, and a CTA of the chest showed evidence of right sided pneumonia. He was initiated on IV antibiotics and admitted for further evaluation and treatment. This morning Mr. Ortiz reports mild improvement in his symptoms overall. No overnight events reported. Patient remains afebrile. Exam Narrative Exam Narrative: General: Patient appears ill but not toxic, AAOX3, NAD Neck: Supple CV: Regular with ectopy, mildly tachycardic, S1S2, No rubs, murmurs, or gallops. Pulmonary: Decreased right sided breath sounds, no wheezing Abdomen: + Bowel Sounds, soft, nontender, nondistended Vascular: No lower extremity edema Psych: Normal mood and affect. Objective Objective Clinical Data: Abnormal lab results 04/05/19 04/05/19 04/05/19 Range/Units 21:00 21:00 21:00 WBC 12.48 H (4.4-10.8) k/cumm MCV 95.1 H (80-95) fL Absolute Neutrophils 7.99 H (1.2-6.7) k/cumm Absolute Lymphocytes (1.2-3.4) k/cumm Absolute Monocytes 1.37 H (0.11-0.7) k/cumm VBG pH 7.47 H (7.32-7.43) VBG pO2 50 H (28-44) mm/Hg VBG O2 Saturation 88 H (70-80) % VBG Base Excess 4.7 H (-3-3) mmol/L Anion Gap (3-11) mmol/L Glucose 124 H (70-100) mg/dL AST 13 L (15-37) U/L 04/06/19 04/06/19 Range/Units 06:20 06:20 WBC 12.72 H (4.4-10.8) k/cumm MCV 95.2 H (80-95) fL Absolute Neutrophils 10.58 H (1.2-6.7) k/cumm Absolute Lymphocytes 1.14 L (1.2-3.4) k/cumm Absolute Monocytes (0.11-0.7) k/cumm VBG pH (7.32-7.43) VBG pO2 (28-44) mm/Hg VBG O2 Saturation (70-80) % VBG Base Excess (-3-3) mmol/L Anion Gap 11.7 H (3-11) mmol/L Glucose 122 H (70-100) mg/dL AST (15-37) U/L Vital Signs Temperature 36.5 C 04/06/19 09:54 Temperature Source Tympanic 04/06/19 09:54 Pulse 101 H 04/06/19 09:54 Pulse Rhythm Regular 04/06/19 08:38 Pulse 77 04/06/19 00:50 Respiratory Rate 16 04/06/19 09:54 Respiratory Effort 04/06/19 08:38 Respiratory Depth Normal 04/06/19 08:38 Respiratory Pattern Normal 04/06/19 08:38 Blood Pressure 107/69 04/06/19 09:54 Blood Pressure Mean 83 04/05/19 23:46 Pulse Oximetry 95 04/06/19 09:54 Oxygen Delivery Method Room Air 04/06/19 09:54 Oxygen Flow Rate 0 04/06/19 09:54 Pain Level 7 04/06/19 09:54 Intake & Output 04/05/19 04/05/19 04/06/19 11:59 23:59 11:59 Intake Total 1050 / 1050 150 / 150 Output Total 1000 / 1000 750 / 750 Balance 50 / 50 -600 / -600 Weight 98.3 kg 98.3 kg Intake: IV 1050 / 1050 150 / 150 Output: Urine 1000 / 1000 750 / 750 Other: Urine Color Yellow Urine Appearance Clear Voiding Methods Urinal Laboratory Results WBC 12.72 k/cumm (4.4-10.8) H 04/06/19 06:20 RBC 4.82 m/cumm (4.50-6.00) 04/06/19 06:20 Hgb 15.4 g/dL (13.5-17.5) 04/06/19 06:20 Hct 45.9 % (40.0-50.0) 04/06/19 06:20 MCV 95.2 fL (80-95) H 04/06/19 06:20 MCH 32.0 pg (27.0-33.0) 04/06/19 06:20 MCHC 33.6 g/dL (32.0-36.0) 04/06/19 06:20 RDW 13.5 % (11.8-14.1) 04/06/19 06:20 Plt Count 223 x1000/uL (130-400) 04/06/19 06:20 MPV 10.5 fL (8.0-11.0) 04/06/19 06:20 Immature Gran % 0.2 04/06/19 06:20 83.2 04/06/19 06:20 9.0 04/06/19 06:20 4.9 04/06/19 06:20 2.5 04/06/19 06:20 0.2 04/06/19 06:20 Absolute Neutrophils 10.58 k/cumm (1.2-6.7) H 04/06/19 06:20 Absolute Lymphocytes 1.14 k/cumm (1.2-3.4) L 04/06/19 06:20 Absolute Monocytes 0.62 k/cumm (0.11-0.7) 04/06/19 06:20 Absolute Eosinophils 0.32 k/cumm (0.0-0.7) 04/06/19 06:20 Absolute Basophils 0.03 k/cumm (0.0-0.2) 04/06/19 06:20 Manual differential 04/05/19 21:00 RBC Morphology Normal 04/05/19 21:00 PT 9.6 sec (9.3-11.0) 04/05/19 21:00 INR 1.0 (0.9-1.1) 04/05/19 21:00 APTT 25.5 sec (21.0-31.4) 04/05/19 21:00 VBG pH 7.47 (7.32-7.43) H 04/05/19 21:00 VBG pCO2 39 mm/Hg (34-47) 04/05/19 21:00 VBG pO2 50 mm/Hg (28-44) H 04/05/19 21:00 VBG HCO3 28 mmol/L (22-28) 04/05/19 21:00 VBG Total CO2 25 mmol/L (22-29) 04/05/19 21:00 VBG O2 Saturation 88 % (70-80) H 04/05/19 21:00 VBG Base Excess 4.7 mmol/L (-3-3) H 04/05/19 21:00 Sodium 140 mmol/L (136-145) 04/06/19 06:20 Potassium 4.6 mmol/L (3.5-5.1) 04/06/19 06:20 Chloride 106 mmol/L (98-107) 04/06/19 06:20 Carbon Dioxide 22.3 mmol/L (21.0-32.0) 04/06/19 06:20 11.7 mmol/L (3-11) H 04/06/19 06:20 BUN 11 mg/dL (7-18) 04/06/19 06:20 0.80 mg/dL (0.70-1.30) 04/06/19 06:20 >= 60.00 (mL/min/1.73m2) 04/06/19 06:20 Glucose 122 mg/dL (70-100) H 04/06/19 06:20 1.1 mmol/L (0.6-1.4) 04/05/19 21:00 Calcium 8.9 mg/dL (8.5-10.1) 04/06/19 06:20 Magnesium 2.0 mg/dL (1.8-2.4) 04/06/19 06:20 0.3 mg/dL (0.2-1.0) 04/05/19 21:00 AST 13 U/L (15-37) L 04/05/19 21:00 ALT 23 U/L (12-78) 04/05/19 21:00 51 U/L (46-116) 04/05/19 21:00 < 0.05 ng/mL (0.00-0.06) 04/06/19 06:20 NT-Pro-B Natriuret Pep 62 pg/mL (-299) 04/05/19 21:00 7.4 g/dL (6.4-8.2) 04/05/19 21:00 3.5 g/dL (3.4-5.0) 04/05/19 21:00 < 0.1 ng/mL 04/06/19 00:28 TSH 2.14 uIU/mL (0.36-3.74) 04/05/19 21:00
[2019-04-06] MEDS: predniSONE 20 MG TAB 40 MG PO (10:44)
[2019-04-06] MEDS: DOXYCYCLINE 100 MG in Normal Saline 100 ML IVPB ×2 (10:44→21:35)
--- NOTE | 2019-04-06 10:45 | PHARADMIT ---
Admission Pharmacy Clinical Review CAP-RLL Code Status Full Code Current Weight 98.3 kg Renally Cleared and Narrow Therapeutic Index Meds CrCl>100 QTc Value / Action Taken QTC 430 (Citalopram) BP Control, Fever BP 107/69 Afebrile pain 7/10 chest pain from cough Electrolytes reviewed WNL DVT Prophylaxis on hold for now....hemoptysis Opiate Usage / Scheduled Bowel Regimen Ordered yes/yes Plt/SCr for Heparin / Enoxaparin Plt 223 SCr 0.8 INR for Warfarin H/H stable, WBC/Bands H/H 15.4/45.9 WBC 12.72 (Prednisone) Antibiotic appropriateness Procalcitonin <0.1 Ceftriaxone/Doxy IV Cultures and Sensitivities Blood pending Sputum negative Surgical ABX d/c within 24 hr DM control / Insulin Dosing BG 122 Heart Failure (Check EF%) (ESTEFANÍA's, B-Block, Diuretics) IV to PO Switch Solumedrol changed to oral Pred Home Meds Reviewed Home Meds Not Ordered all ordered Comments troponin neg x3 Tessalon and Acet/cod for cough and Guaifenesin blood tinged sputum...MDAware Lidocaine patch, Prednisone..does have back pain/bulged discs smoker-no nicotine replacement
--- NOTE | 2019-04-06 14:01 | INITIAL_ITS ---
Care Management Initial Assess REASON FOR HOSPITALIZATION:: Community Aquired Pneumonia PAST MEDICAL HISTORY/PAST SURGICAL HISTORY:: Medical: Benign colon polyp (Acute); Cervical disc disease (Chronic); Cervical disc disorder (Acute); Duodenitis (Inactive); Erectile dysfunction (Acute). GERD (gastroesophageal reflux disease) (Chronic); Migraine (Acute 01/09/17). Migraine (Chronic). Surgical: Colonoscopy - MAC PREVIOUS FUNCTIONAL STATUS/SOCIAL/FAMILY SUPPORTS:: Lives with his , Anant gómez, at their home in [place]. Has 3 adult children who live out of the area. Works for the [employer]. Has been out of work for over a month. 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 Has an appointment with Ortho in May. CURRENT FUNCTIONAL STATUS:: Sitting up on the side of the bed. States it still hurts to take a deep breath but he feels much better than when he came in last night. States the pain medication has helped to manage his back pain. ADVANCE DIRECTIVES:: None on file Has patient been provided with information about the portal?: No Did the patient sign up for the portal?: No CODE STATUS:: Full Code INSURANCE COVERAGE / FINANCIAL ISSUES:: BC/BS CURRENT HOME/COMMUNITY SERVICES/EQUIPMENT:: None at this time PRIMARY CARE PHYSICIAN:: [facility]: Jarvis Camilo MD POTENTIAL DISCHARGE NEEDS:: Follow up appointment with PCP PATIENT/FAMILY EDUCATION NEEDS:: Discharge Instructions ANTICIPATED BARRIERS TO DISCHARGE:: None identified TRANSPORTATION:: Family PLAN:: Abdulaziz will return home and no services are indicated at this time. , Vanessa, will transport by car when medically cleared for discharge.
[2019-04-06] MEDS: Enoxaparin 100 MG/ML SYR SC (17:26)
[2019-04-06] MEDS: Pantoprazole 40 MG VIAL IVP (18:34)
[2019-04-06] MEDS: Omnipaque 350 MG/ML 100 ML BTL IJ (19:00)
[2019-04-06] MEDS: Omnipaque 350 MG/ML 50 ML BTL PO (19:01)
--- NOTE | 2019-04-06 19:02 | DI.CT_ITS ---
SYMPTOM/DIAGNOSIS: PE'S, POTENTIALLY RECURRENT ABDOMINAL AND PELVIC CT: 04/06 CT examination of the abdomen and pelvis was performed with a bolus infusion of 100 cc Omnipaque 350 and ingestion of dilute Barium. Images obtained through the lung bases show areas of consolidation and/or atelectasis at the right lung base, suspected pulmonary infarct in a patient with pulmonary emboli, superimposed pneumonia not excluded. Liver, spleen and pancreas appear normal. Gallbladder is contracted and CT normal. No biliary dilatation seen. Abdominal aorta is of normal diameter and no major vascular abnormality seen. Adrenals and kidneys appear normal. No urinary tract calcification or obstruction. No evidence of bowel obstruction or diverticulitis. Appendix appears normal. No significant abdominal wall hernia seen. No abdominal or pelvic adenopathy CONCLUSION: No evidence of acute intra-abdominal process.
--- NOTE | 2019-04-06 19:43 | DI.VRAD_ITS ---
EXAM: CT Abdomen and Pelvis With Contrast EXAM DATE/TIME: 04/06/2019 6:31 PM CLINICAL HISTORY: 49 years old, male; Abnormal findings; Abnormal radiologic finding of the abdomen; Radiologic exam and body structure: Pe yesterday, R/O occult process TECHNIQUE: Imaging protocol: Axial computed tomography images of the abdomen and pelvis with intravenous contrast. Coronal and sagittal reformatted images were created and reviewed. COMPARISON: No relevant prior studies available. FINDINGS: Lungs: Right middle lobe and anterior right basilar lobe consolidation with air bronchogram formation consistent with pneumonia. Liver: The liver is unremarkable. Gallbladder and bile ducts: There is possible sludge layering within the fundus of the gallbladder. Pancreas: The pancreas is normal. Spleen: Subcentimeter calcified granulomas in the spleen, which are due to prior exposure to granulomatous disease. Adrenals: No adrenal mass is present. Kidneys and ureters: The kidneys excrete contrast normally without evidence of solid renal mass or hydronephrosis. Stomach and bowel: Normal. No obstruction. No mucosal thickening. Appendix: A normal-appearing appendix is not identified. Please correlate with the patient's prior surgical history. Intraperitoneal space: Normal. No free air. No significant fluid collection. Vasculature: Atherosclerotic calcifications of the aorta and iliac arteries without evidence of aneurysm. Lymph nodes: No retroperitoneal lymphadenopathy is identified. Bladder: Unremarkable as visualized. Reproductive: Unremarkable as visualized. Bones/joints: Degenerative changes of the lumbar spine without acute osseous abnormality. Soft tissues: Unremarkable. IMPRESSION: 1. No current CT evidence of acute abdominal process. 2. Consolidation/airspace disease at the right lung base involving the right middle lobe and right lower lobe consistent with pneumonia. 3. Evidence of prior granulomatous disease in the spleen. Dictated and Authenticated by: Jarvis Lozano MD. Ordering:ALESSANDRA Marsh MD
[2019-04-06] MEDS: Lidocaine 5% Patch 1 PATCH TP (20:19)
[2019-04-06] MEDS: Docusate Sodium 100 MG CAP PO (20:22)
[2019-04-06] MEDS: cefTRIAXone 2 GM/50 ML BAG IVPB (22:52)
[2019-04-07] VITALS (8 sets, daily range): BP systolic 106–151; BP diastolic 67–92; PULSE 80–102; RESP 16–20; TEMP 36.3–37.6; O2SAT 92–98
[2019-04-07] MEDS: Enoxaparin 100 MG/ML SYR SC (05:03)
[2019-04-07 07:28] LABS: Abs Immature Grans 0.02 k/cumm (0.0-0.09); Absolute Lymphocyte Count 3.92 k/cumm (1.2-3.4); Absolute Monocyte Count 1.67 k/cumm (0.11-0.7); Basophils % 0.1; Eosinophils % 0.4; HCT 42.7 % (40.0-50.0); Immature Grans % 0.1; Mean Corp. HGB Concentration 32.8 g/dL (32.0-36.0); Mean Corpuscular Hemoglobin 31.5 pg (27.0-33.0); Mean Corpuscular Volume 96.2 fL (80-95); Mean Platelet Volume 10.2 fL (8.0-11.0); Monocytes % 11.9; Neutrophils % 59.5; Platelet Count 279 x1000/uL (130-400); RBC 4.44 m/cumm (4.50-6.00); RBC Distribution Width 13.5 % (11.8-14.1)
[2019-04-07 07:36] LABS: Absolute Basophil Count 0.01 k/cumm (0.0-0.2); Absolute Eosinophil Count 0.06 k/cumm (0.0-0.7); Absolute Neutrophil Count 8.33 k/cumm (1.2-6.7)
[2019-04-07 07:41] LABS: Anion Gap 10.4 mmol/L (3-11); BUN 12 mg/dL (7-18); CO2 26.6 mmol/L (21.0-32.0); CREATININE 0.86 mg/dL (0.70-1.30); Calcium 8.8 mg/dL (8.5-10.1); Chloride 105 mmol/L (98-107); Glucose 97 mg/dL (70-100); Potassium 3.4 mmol/L (3.5-5.1); Sodium 142 mmol/L (136-145)
--- NOTE | 2019-04-07 08:16 | CMPROGNOTE_ITS ---
- If Service Date Differs Date of service: 04/07/19 Time of Service: 08:17 Care Management Progress Note S/O:Efraín was sitting up in bed complaining of severe pain in his right upper flank/back area. He stats he has had back pain for several weeks and that the blood clots are even more painful. His Vanessa was in the room and both of them had many questions about his diagnosis and care. Efraín is undergoing testing to try to determine the likely source of his emboli. A: Efraín is a 49 year ols man admitted to [facility] on 04/05/19 with Community Acquired Pneumonia P:Abdulaziz will return home and no services are indicated at this time. , Vanessa, will transport by car when medically cleared for discharge. CM will continue to provide support to patient, family and discharge planning concerns.
[2019-04-07] MEDS: Pantoprazole 40 MG VIAL IVP (09:06)
[2019-04-07] MEDS: Normal Saline Flush 10 ML SYR IVP (09:06)
[2019-04-07] MEDS: guaiFENesin 600 MG TABCR 1200 MG PO ×2 (09:07→20:07)
[2019-04-07] MEDS: Benzonatate 200 MG CAP PO ×3 (09:07→20:08)
[2019-04-07] MEDS: buPROPion-XL 150 MG TABCR PO (09:07)
[2019-04-07] MEDS: Citalopram 20 MG TAB PO (09:07)
[2019-04-07] MEDS: Docusate Sodium 100 MG CAP PO ×2 (09:07→20:08)
[2019-04-07 09:41] LABS: Diff Comment Agrees w/ Instrument; RBC Morphology Normal
--- NOTE | 2019-04-07 10:00 | DI.US_ITS ---
SYMPTOM/DIAGNOSIS: ACUTE PE'S DUPLEX VENOUS ULTRASOUND BOTH LOWER EXTREMITIES: 04/07 Duplex evaluation of the deep venous system both lower extremities was performed according to the usual protocol. There is no evidence of a DVT on the right. On the left the femoral and popliteal veins are unremarkable to the level of the distal popliteal vein. There is thrombus in the distal popliteal vein and a posterior tibial vein. These are nonocclusive thrombi with unremarkable venous flow through this region. CONCLUSION: 1. No evidence of right lower extremity DVT 2. Non occlusive DVT in distal popliteal vein and a posterior tibial vein on the left.
--- NOTE | 2019-04-07 10:08 | MERGE_ITS ---
*[facility]* *[facility]* [address] [place] [address] Date of study: 04/07/2019 Transthoracic Echocardiography M-mode, complete 2D, complete spectral Doppler, and color Doppler *STUDY CONCLUSIONS* Summary: 1. Left ventricle: The cavity size was normal. Systolic function was normal. The estimated ejection fraction was 60-65%. Diastolic parameters were normal. There was no evidence of elevated ventricular filling pressure by Doppler parameters. 2. Mitral valve: There was mild regurgitation. 3. Right ventricle: The cavity size was normal. Wall thickness was normal. Systolic function was normal. 4. Atrial septum: No defect or patent foramen ovale was identified. 5. Pulmonary arteries: Pulmonary systolic pressure was in the range of 10mm Hg to 20mm Hg. 6. Inferior vena cava: The vessel was normal in size. The respirophasic diameter changes were in the normal range (greater than or equal to 50%), consistent with normal central venous pressure. *PATIENT PRESENTATION* Height: 182.9cm (72in ) S/D Pressure: 119 / 70 Weight: 98kg (215.5lb ) BSA: 2.25m^2 Test start time: 10:06 AM. Test stop time: 10:48 AM. PERFORMING Unknown CONSULTING Maximo Beasley ORDERING Maximo Beasley REFERRING Maximo Beasley PERFORMING [facility] FLUID DYNAMICIST Milvia Calhoun *PROCEDURE DATA* Procedure information: This study was interpreted by [facility]. Pertinent images and digital data are archived for permanent storage and are available for subsequent review. No prior study was available for comparison. Study status: Routine. Transthoracic echocardiography. M-mode, complete 2D, complete spectral Doppler, and color Doppler. A Transthoracic Echocardiogram was performed. Scanning was performed from the parasternal, apical, subcostal, and suprasternal notch acoustic windows. Images were obtained using an [employer] SC 2000 cardiac ultrasound machine. Image quality was adequate. Study completion: The patient tolerated the procedure well. History: PMH: PE, Tachycardia. *CARDIAC ANATOMY* Left ventricle: The cavity size was normal. Systolic function was normal. The estimated ejection fraction was 60-65%. The tissue Doppler parameters were normal. Diastolic parameters were normal. There was no evidence of elevated ventricular filling pressure by Doppler parameters. Aortic valve: Doppler: There was no stenosis. There was no regurgitation. VTI ratio of LVOT to aortic valve: 1.16. Valve area (VTI): 4.3cm^2. Indexed valve area (VTI): 1.9cm^2/m^2. Peak velocity ratio of LVOT to aortic valve: 0.92. Valve area (Vmax): 3.4cm^2. Indexed valve area (Vmax): 1.5cm^2/m^2. Mean velocity ratio of LVOT to aortic valve: 0.81. Valve area (Vmean): 3cm^2. Indexed valve area (Vmean): 1.3cm^2/m^2. Mean gradient (S): 1.8mm Hg. Peak gradient (S): 3mm Hg. Aorta: Aortic root: The aortic root was normal in size. Ascending aorta: The ascending aorta was normal in size. Mitral valve: Doppler: There was no evidence for stenosis. There was mild regurgitation. Valve area by pressure half-time: 3.7cm^2. Indexed valve area by pressure half-time: 1.7cm^2/m^2. Left atrium: The atrium was normal in size. Atrial septum: No defect or patent foramen ovale was identified. Right ventricle: The cavity size was normal. Wall thickness was normal. Systolic function was normal. Pulmonic valve: Doppler: There was no evidence for stenosis. There was no significant regurgitation. Peak gradient (S): 2.5mm Hg. Tricuspid valve: Doppler: There was mild regurgitation. Pulmonary artery: Poorly visualized. Pulmonary systolic pressure was in the range of 10mm Hg to 20mm Hg. Right atrium: The atrium was normal in size. Pericardium: There was no pericardial effusion. Systemic veins: Inferior vena cava: The vessel was normal in size. The respirophasic diameter changes were in the normal range (greater than or equal to 50%), consistent with normal central venous pressure. Measurements Left ventricle Value Reference LV ID, ED, PLAX 4.9 cm 3.5 - 6.0 LV ID, ES, PLAX 3.5 cm 2.1 - 4.0 LV PW thickness, ED, PLAX 1.1 cm LV end-diastolic volume, 1-p A2C 89 ml LV ejection fraction, 1-p A2C 58 % LV end-diastolic volume, 1-p A4C 132 ml LV ejection fraction, 1-p A4C 58 % LV e', lateral 0.134 m/sec LV E/e', lateral 4 LV e', medial 0.087 m/sec LV E/e', medial 7 LV e', average 0.111 m/sec LV E/e', average 5 Ventricular septum Value Reference IVS thickness, ED, PLAX 1.1 cm LVOT Value Reference LVOT ID, A-P 2.2 cm LVOT area 3.7 cm^2 LVOT peak velocity, S 0.8 m/sec LVOT mean velocity, S 0.51 m/sec LVOT VTI, S 15.1 cm LVOT peak gradient, S 2.5 mm Hg LVOT mean gradient, S 1.3 mm Hg Stroke volume (SV), LVOT DP 56 ml Stroke index (SV/bsa), LVOT DP 25 ml/m^2 Aortic valve Value Reference Aortic valve peak velocity, S 0.9 m/sec Aortic valve mean velocity, S 0.6 m/sec Aortic valve VTI, S 13.0 cm Aortic mean gradient, S 1.8 mm Hg Aortic peak gradient, S 3 mm Hg VTI ratio, LVOT/AV 1.16 Aortic valve area, VTI 4.3 cm^2 Velocity ratio, peak, LVOT/AV 0.92 Aortic valve area, peak velocity 3.4 cm^2 Velocity ratio, mean, LVOT/AV 0.81 Aortic valve area, mean velocity 3 cm^2 Aortic valve area/bsa, mean velocity 1.3 cm^2/m^2 Aorta Value Reference Aortic root ID, ED 3.7 cm Ascending aorta ID, A-P, S 3.3 cm Left atrium Value Reference LA ID, A-P, ES 4.0 cm LA ID/bsa, A-P 1.8 cm/m^2 <=2.2 LA volume, ES, 2-p 43 ml LA volume/bsa, ES, 2-p 19 ml/m^2 LA/aortic root ratio 1.11 Mitral valve Value Reference Mitral E-wave peak velocity 0.6 m/sec Mitral A-wave peak velocity 0.62 m/sec Mitral deceleration time 203 ms 150 - 230 Mitral pressure half-time 59 ms Mitral E/A ratio, peak 0.96 Mitral valve area, PHT, DP 3.7 cm^2 Tricuspid valve Value Reference Tricuspid regurg peak velocity 1.8 m/sec Tricuspid peak RV-RA gradient 13.5 mm Hg Right atrium Value Reference RA area, ES, A4C 16 cm^2 8.3 - 19.5 Pulmonic valve Value Reference Pulmonic peak gradient, S 2.5 mm Hg Legend: (L) and (H) hardy values outside specified reference range. I have personally reviewed the images and have reviewed and edited the reported findings. Electronically signed by Ravi Mitchell MD 04/07/2019 11:54
[2019-04-07] MEDS: Potassium Chloride 20 MEQ TABCR 40 MEQ PO (11:10)
[2019-04-07] MEDS: DOXYCYCLINE 100 MG in Normal Saline 100 ML IVPB ×2 (11:12→22:10)
[2019-04-07] MEDS: ACETAMINOPHEN 1,000 MG/100 ML BTL 400 MG IVPB ×2 (13:02→20:07)
--- NOTE | 2019-04-07 13:43 | W.PM.PROGNOT ---
Date of Service Date of service: 04/07/19 Time of Service: 13:43 Assessment and Plan (1) Pulmonary embolism and infarction: Current visit: Yes Status: Acute Evidence of multiple Bilateral segmental and subsegmental PE's, with left sided non-occlusive LE DVTs. ECHO without evidence of PHTN or RV strain. - Unsure if patient's symptoms represent recurrent DVT/PE given similiar instances this past summer. Interestingly the patient also reports a similiar set of symptoms approximately 4 years ago. No family history of hypercoagulability, no evidence of active malignancy, and lack of injury or prolonged immobility. Patient does report spending a significant time on the ground with his legs bent under him. - Change SC Enoxaparin to high dose Apixaban, with plans for continuation for a 3-6 month period at minimum, with follow-up at the Thrombosis clinic. For now check a lupus cascade, TRISTAN-2 Mutation, and PNH, schedule for outpatient follow-up with Heme, and close follow-up with PCP. - Remains hemodynamically stable without concerning findings by current testing - however, will benefit from an additional night stay for improved pain control. Subjective Interval history since last seen: 49-year-old man with a history of tobacco use, admitted from [facility] Emergency Department on 04/05 initially with a diagnosis of CAP, later revised to Pulmonary Emboli with likely Pulmonary Infarcts. Mr. Ortiz has a Past Medical History significant for chronic tobacco use, COPD, migraines, and back pain with radicular symptoms. He presented to the ED with an acute onset pleuritic chest pain, dyspnea, and cough with associated Hemoptysis. He also endorsed ill contact with a coworker who was sick with pneumonia a few months back. Work-up in the ED was significant for leukocytosis, and a CTA of the chest showed evidence of right sided pneumonia. He was initiated on IV antibiotics and admitted for further evaluation and treatment. Of note, Mr. Ortiz reported similiar but less intense episodes a few weeks back as well as a couple of months ago. Following admission local radiology provided over read on admission CT Scan, and reported presence of bilateral segmental and subsegmental PE's, with patient's previously seen infiltrates likely representing associated Pulmonary Infarcts. Mr. Ortiz was initiated on therapeutic anticoagulation with weight based Enoxaparin, with subsequent LE Dopplers showing left sided non-occlusive DVTs in the distal Popliteal & Posterior Tibial Veins, and ECHO was completely normal. Upon specific questioning Mr. Ortiz admits to left calf pain for some time now - he denies any recent travel or significant immobility, and does not have a family history of hypercoagulability. He does however admit to 'hours' of working on his knees with his legs bent - he recently replaced the barn floor in his home, and also does digging with a metal detector looking for 'historical artifcacts'. CT of the abdomen and pelvis showed no evidence of malignancy, and colonoscopy appears up to date. The patient is hemodynamically stable and now without significant tachycardia, but still complaining of significant pleuritic chest pain. No overnight events reported. Remains afebrile. Exam Narrative Exam Narrative: General: Patient appears ill but not toxic, AAOX3, NAD Neck: Supple CV: Regular with ectopy, mildly tachycardic, S1S2, No rubs, murmurs, or gallops. Pulmonary: Decreased right sided breath sounds have improved, no wheezing, minimal right sided crackles Abdomen: + Bowel Sounds, soft, nontender, nondistended Vascular: No lower extremity edema Psych: Normal mood and affect. Objective Objective Clinical Data: Abnormal lab results 04/07/19 04/07/19 Range/Units 06:58 06:58 WBC 14.00 H (4.4-10.8) k/cumm RBC 4.44 L (4.50-6.00) m/cumm MCV 96.2 H (80-95) fL Absolute Neutrophils 8.33 H (1.2-6.7) k/cumm Absolute Lymphocytes 3.92 H (1.2-3.4) k/cumm Absolute Monocytes 1.67 H (0.11-0.7) k/cumm Potassium 3.4 L D (3.5-5.1) mmol/L Vital Signs Temperature 36.3 C L 04/07/19 07:32 Temperature Source Tympanic 04/07/19 07:32 Pulse 87 04/07/19 07:32 Pulse Rhythm Regular 04/06/19 20:30 Pulse 77 04/06/19 00:50 Respiratory Rate 18 04/07/19 07:32 Respiratory Effort Non-Labored 04/06/19 20:30 Respiratory Depth Normal 04/06/19 20:30 Respiratory Pattern Normal 04/06/19 15:39 Blood Pressure 120/69 04/07/19 07:32 Blood Pressure Mean 83 04/05/19 23:46 Pulse Oximetry 95 04/07/19 07:32 Oxygen Delivery Method Room Air 04/07/19 07:32 Oxygen Flow Rate 0 04/07/19 07:32 Pain Level 7 04/07/19 09:11 Intake & Output 04/06/19 04/07/19 04/07/19 23:59 11:59 23:59 Intake Total 1240 / 3833.333 850 / 1090 240 / 1090 Balance 1240 / 2083.333 850 / 1090 240 / 1090 Weight 95.1 kg Intake: IV 280 / 2393.333 Oral 960 / 1440 850 / 1090 240 / 1090 Other: Urine Appearance Clear Laboratory Results WBC 14.00 k/cumm (4.4-10.8) H 04/07/19 06:58 RBC 4.44 m/cumm (4.50-6.00) L 04/07/19 06:58 Hgb 14.0 g/dL (13.5-17.5) 04/07/19 06:58 Hct 42.7 % (40.0-50.0) 04/07/19 06:58 MCV 96.2 fL (80-95) H 04/07/19 06:58 MCH 31.5 pg (27.0-33.0) 04/07/19 06:58 MCHC 32.8 g/dL (32.0-36.0) 04/07/19 06:58 RDW 13.5 % (11.8-14.1) 04/07/19 06:58 Plt Count 279 x1000/uL (130-400) 04/07/19 06:58 MPV 10.2 fL (8.0-11.0) 04/07/19 06:58 Immature Gran % 0.1 04/07/19 06:58 59.5 04/07/19 06:58 28.0 04/07/19 06:58 11.9 04/07/19 06:58 0.4 04/07/19 06:58 0.1 04/07/19 06:58 Absolute Neutrophils 8.33 k/cumm (1.2-6.7) H 04/07/19 06:58 Absolute Lymphocytes 3.92 k/cumm (1.2-3.4) H 04/07/19 06:58 Absolute Monocytes 1.67 k/cumm (0.11-0.7) H 04/07/19 06:58 Absolute Eosinophils 0.06 k/cumm (0.0-0.7) 04/07/19 06:58 Absolute Basophils 0.01 k/cumm (0.0-0.2) 04/07/19 06:58 Agrees w/ instrument 04/07/19 06:58 RBC Morphology Normal 04/07/19 06:58 PT 9.6 sec (9.3-11.0) 04/05/19 21:00 INR 1.0 (0.9-1.1) 04/05/19 21:00 APTT 25.5 sec (21.0-31.4) 04/05/19 21:00 VBG pH 7.47 (7.32-7.43) H 04/05/19 21:00 VBG pCO2 39 mm/Hg (34-47) 04/05/19 21:00 VBG pO2 50 mm/Hg (28-44) H 04/05/19 21:00 VBG HCO3 28 mmol/L (22-28) 04/05/19 21:00 VBG Total CO2 25 mmol/L (22-29) 04/05/19 21:00 VBG O2 Saturation 88 % (70-80) H 04/05/19 21:00 VBG Base Excess 4.7 mmol/L (-3-3) H 04/05/19 21:00 Sodium 142 mmol/L (136-145) 04/07/19 06:58 Potassium 3.4 mmol/L (3.5-5.1) L D 04/07/19 06:58 Chloride 105 mmol/L (98-107) 04/07/19 06:58 Carbon Dioxide 26.6 mmol/L (21.0-32.0) 04/07/19 06:58 10.4 mmol/L (3-11) 04/07/19 06:58 BUN 12 mg/dL (7-18) 04/07/19 06:58 0.86 mg/dL (0.70-1.30) 04/07/19 06:58 >= 60.00 (mL/min/1.73m2) 04/07/19 06:58 Glucose 97 mg/dL (70-100) 04/07/19 06:58 1.1 mmol/L (0.6-1.4) 04/05/19 21:00 Calcium 8.8 mg/dL (8.5-10.1) 04/07/19 06:58 Magnesium 2.0 mg/dL (1.8-2.4) 04/07/19 06:58 0.3 mg/dL (0.2-1.0) 04/05/19 21:00 AST 13 U/L (15-37) L 04/05/19 21:00 ALT 23 U/L (12-78) 04/05/19 21:00 51 U/L (46-116) 04/05/19 21:00 < 0.05 ng/mL (0.00-0.06) 04/06/19 06:20 NT-Pro-B Natriuret Pep 62 pg/mL (-299) 04/05/19 21:00 7.4 g/dL (6.4-8.2) 04/05/19 21:00 3.5 g/dL (3.4-5.0) 04/05/19 21:00 < 0.1 ng/mL 04/06/19 00:28 TSH 2.14 uIU/mL (0.36-3.74) 04/05/19 21:00 Legionella Source (see note) 04/06/19 01:22 Legionella Reprt Status (see note) 04/06/19 01:22 Legionella Final Result (see note) 04/06/19 01:22
[2019-04-07] MEDS: Apixaban 5 MG TAB 10 MG PO (16:14)
[2019-04-07] MEDS: Potassium Chloride 20 MEQ TABCR PO (16:14)
[2019-04-07 16:35] LABS: Streptococcus Pneumoniae Ag, U Negative (Negative)
[2019-04-07] MEDS: Lidocaine 5% Patch 1 PATCH TP (20:09)
[2019-04-07] MEDS: cefTRIAXone 2 GM/50 ML BAG IVPB (21:12)
[2019-04-08 02:39] VITALS: PULSE 93
[2019-04-08 03:35] VITALS: BP 125/70; PULSE 95; RESP 18; TEMP 37.3; O2SAT 94
[2019-04-08] MEDS: ACETAMINOPHEN 1,000 MG/100 ML BTL 400 MG IVPB ×2 (03:38→11:43)
[2019-04-08] MEDS: Normal Saline Flush 10 ML SYR IVP ×2 (03:39→09:34)
[2019-04-08 06:56] LABS: Abs Immature Grans 0.06 k/cumm (0.0-0.09); HCT 44.7 % (40.0-50.0); HGB 14.8 g/dL (13.5-17.5); Mean Corp. HGB Concentration 33.1 g/dL (32.0-36.0); Mean Corpuscular Hemoglobin 31.5 pg (27.0-33.0); Mean Corpuscular Volume 95.1 fL (80-95); Mean Platelet Volume 9.9 fL (8.0-11.0); Platelet Count 303 x1000/uL (130-400); RBC Distribution Width 13.6 % (11.8-14.1); White Blood Cell Count 11.46 k/cumm (4.4-10.8)
[2019-04-08 07:23] LABS: BUN 15 mg/dL (7-18); CREATININE 0.76 mg/dL (0.70-1.30); Chloride 101 mmol/L (98-107); Glucose 93 mg/dL (70-100); Magnesium 2.1 mg/dL (1.8-2.4); Potassium 3.8 mmol/L (3.5-5.1); Sodium 137 mmol/L (136-145)
[2019-04-08 07:25] VITALS: BP 112/73; PULSE 88; RESP 19; TEMP 36.3; O2SAT 95
[2019-04-08 07:26] VITALS: PULSE 85
[2019-04-08 07:38] LABS: Absolute Eosinophil Count 0.11 k/cumm (0.0-0.7); Absolute Lymphocyte Count 3.21 k/cumm (1.2-3.4); Absolute Monocyte Count 1.15 k/cumm (0.11-0.7); Absolute Neutrophil Count 6.99 k/cumm (1.2-6.7); Atypical Lymphocytes % 4; Diff Comment Manual Differential
[2019-04-08 07:39] LABS: Polychromasia Present
[2019-04-08] MEDS: Pantoprazole 40 MG VIAL IVP (09:33)
[2019-04-08] MEDS: Docusate Sodium 100 MG CAP PO (09:34)
[2019-04-08] MEDS: Benzonatate 200 MG CAP PO (09:34)
[2019-04-08] MEDS: Citalopram 20 MG TAB PO (09:35)
[2019-04-08] MEDS: Apixaban 5 MG TAB 10 MG PO (09:35)
[2019-04-08] MEDS: guaiFENesin 600 MG TABCR 1200 MG PO (09:35)
[2019-04-08] MEDS: buPROPion-XL 150 MG TABCR PO (09:35)
[2019-04-08] MEDS: DOXYCYCLINE 100 MG in Normal Saline 100 ML IVPB (09:40)
--- NOTE | 2019-04-08 11:03 | W.PM.DS.N ---
Date of service: 04/08/19 Time of Service: 11:04 DS: Diagnosis Discharge Diagnosis (1) Pulmonary embolism and infarction: Status: Acute Discharge Plan Disposition Patient Disposition: HOME Condition: Improving Discharge Details Chief Complaint: Chest Pain Clinical Impression: Community acquired pneumonia, Cough with hemoptysis Reason For Visit: COMMUNITY AQUIRED PNEUMONIA Admit Date/Time: 04/05/19 22:52 Admit Provider: Augustus Mora Attending Provider: Augustus Mora Primary Care Provider: Jarvis Camilo ED Provider: Amari Juarez Hospital Course Hospital Course: Chief Complaint: Pleuritic Chest Pain, Dyspnea HPI: 49-year-old man with a history of tobacco use, admitted from [facility] Emergency Department on 04/05 initially with a diagnosis of CAP, later revised to Pulmonary Emboli with likely Pulmonary Infarcts. Mr. Ortiz has a Past Medical History significant for chronic tobacco use, COPD, migraines, and back pain with radicular symptoms. He presented to the ED with an acute onset pleuritic chest pain, dyspnea, and cough with associated Hemoptysis. He also endorsed ill contact with a coworker who was sick with pneumonia a few months back. Work-up in the ED was significant for leukocytosis, and a CTA of the chest showed evidence of right sided pneumonia. He was initiated on IV antibiotics and admitted for further evaluation and treatment. Of note, Mr. Ortiz reported similiar but less intense episodes a few weeks back as well as a couple of months ago. Following admission local radiology provided over read on admission CT Scan, and reported presence of bilateral segmental and subsegmental PE's, with patient's previously seen infiltrates likely representing associated Pulmonary Infarcts. Mr. Ortiz was initiated on therapeutic anticoagulation with weight based Enoxaparin, with subsequent LE Dopplers showing left sided non-occlusive DVTs in the distal Popliteal & Posterior Tibial Veins. His ECHO was checked and completely normal. Upon specific questioning Mr. Ortiz admits to left calf pain for some time now - he denies any recent travel or significant immobility, and does not have a family history of hypercoagulability. He does however admit to 'hours' of working on his knees with his legs bent - he recently replaced the barn floor in his home, and also does digging with a metal detector looking for 'historical artifcacts'. CT of the abdomen and pelvis showed no evidence of malignancy, and colonoscopy appears up to date. The patient is hemodynamically stable and now without significant tachycardia. He reports continued dyspnea and pleuritic chest pain, but however improved. No overnight events reported. Remains afebrile. Hospital Course: (1) Pulmonary embolism and infarction: Evidence of multiple Bilateral segmental and subsegmental PE's, with left sided non-occlusive LE DVTs. ECHO without evidence of PHTN or RV strain. - Unsure if patient's symptoms represent recurrent DVT/PE given similiar instances this past summer. Interestingly the patient also reports a similiar set of symptoms approximately 4 years ago. No family history of hypercoagulability, no evidence of active malignancy, and lack of injury or prolonged immobility, although with patient reported significant time on the ground with his legs bent under him. - Changed initial weight based SC Enoxaparin to high dose Apixaban, with plans for continuation for a 3-6 month period at minimum, with follow-up at the Thrombosis clinic. Labs for lupus cascade, TRISTAN-2 Mutation, and PNH have been drawn and pending at this time. Will need schedule for outpatient follow-up with Heme, and close follow-up with PCP. - Remains hemodynamically stable without concerning findings by current testing. Will ensure PPI at discharge as patient also reports a history of Peptic Ulcer. - Will complete a 5 day course of antibiotics - however, highly suspect findings on CT were related to pulmonary infarcts as opposed to infectious etiology. - Discussed risks vs. benefits of chronic anticoagulation in detail today. Home Meds and New Rx's Prescriptions: New apixaban 5 mg (74 tabs) tablets,dose pack See Rx Instructions .ROUTE .COMPLEX Qty: 1 RF: 0 oxycodone 5 mg Tablet 5 mg PO Q4H PRN PRNQty: 21 RF: 0 cefpodoxime 200 mg tablet 200 mg PO BID Qty: 6 RF: 0 doxycycline hyclate 100 mg capsule 100 mg PO BID Qty: 6 RF: 0 pantoprazole [Protonix] 40 mg tablet,delayed release (DR/EC) 40 mg PO DAILY Qty: 30 RF: 0 Continued sildenafil [Viagra] 100 mg tablet 100 mg PO DAILY PRN (Reason: erectile dysfunction) Qty: 12 RF: 10 bupropion HCl [Wellbutrin SR] 150 mg tablet sustained-release 12 hr 150 mg PO QAM Qty: 90 RF: 3 citalopram 20 mg tablet 20 mg PO BID Qty: 180 RF: 3 sumatriptan succinate 100 mg tablet 100 mg PO as directed Qty: 6 RF: 2 Shingrix Adjuvant Component-PF suspension 0.5 ml IM DAILY Qty: 0.5 RF: 1 lidocaine 5 % adhesive patch,medicated 1 patch TP DAILY Qty: 15 RF: 0 cyclobenzaprine 5 mg tablet 5 mg PO TID PRN (Reason: muscle spasm) Qty: 14 RF: 0 calcium carbonate [Tums Ultra] 400 MG tablet,chewable 400 mg PO PRN RF: 0 Discharge Instructions Stand Alone Forms: Nursing Discharge Form Referrals: Jarvis Camilo [Primary Care Provider] - 04/16/19 9:40 am Activity:: No Strenuous Activity Equipment/Supplies:: No Equipment Needed Diet:: As Tolerated Discharge Orders Discharge Orders: Discharge Order (Routine); Ordered 04/08/19 Ordered By: Maximo Beasley DS: Data Vitals/I&O Vitals and I&O: Vital Signs Temperature 36.3 C L 04/08/19 07:25 Temperature Source Tympanic 04/08/19 07:25 Pulse 85 04/08/19 07:26 Pulse Rhythm Regular 04/07/19 20:06 Pulse 77 04/06/19 00:50 Respiratory Rate 19 04/08/19 07:25 Respiratory Effort 04/07/19 20:06 Respiratory Depth Shallow 04/07/19 20:06 Respiratory Pattern Normal 04/07/19 20:06 Blood Pressure 112/73 04/08/19 07:25 Blood Pressure Mean 83 04/05/19 23:46 Pulse Oximetry 95 04/08/19 07:25 Oxygen Delivery Method Room Air 04/08/19 07:25 Oxygen Flow Rate 0 04/08/19 07:25 Pain Level 4 04/08/19 07:25 Intake & Output 04/07/19 04/07/19 04/08/19 11:59 23:59 11:59 Intake Total 850 / 1780 930 / 1780 960 / 960 Output Total 600 / 600 Balance 850 / 1780 930 / 1780 360 / 360 Weight 95.1 kg 94.9 kg Intake: IV 450 / 450 Oral 850 / 1330 480 / 1330 960 / 960 Output: Urine 600 / 600 Other: Urine Color Pale Yellow Yellow Urine Appearance Clear Clear Urine Odor None Normal Voiding Methods Toilet Urinal Completed studies during hospitalization [Text1]: Exam(s) 04/05/[address]:CT chest PE CTA SYMPTOM/DIAGNOSIS: HEMOPTYSIS, RIGHT SIDED CHEST PAIN CTA CHEST: 04/05 CT angiography was performed with multi slice acquisition and multi planar and 3D reconstruction. CT angiography of the chest was performed with a bolus infusion of 100 cc Omnipaque 350. Images obtained through the upper abdomen show unremarkable appearance of visualized portions of liver, spleen, pancreas, adrenals and kidneys. The thoracic aorta is normal in appearance. There are multiple pulmonary emboli seen bilaterally predominantly in the lower lobe, pulmonary arterial circulation right greater than left and these involve segmental and subsegmental vessels No central pulmonary embolus identified. There are peripheral streaky areas of increased radiodensity in areas of atelectasis and/or consolidation in the right lung base with an associated small right pleual effusion. The findings are suspicious for pulmonary infarction. Otherwise, lungs are generally clear. No mediastinal or hilar adenopathy. CONCLUSION: Findings consistent with multiple pulmonary emboli. -------- Exam(s) 04/06/[address]:CT abdomen & pelvis w SYMPTOM/DIAGNOSIS: PE'S, POTENTIALLY RECURRENT ABDOMINAL AND PELVIC CT: 04/06 CT examination of the abdomen and pelvis was performed with a bolus infusion of 100 cc Omnipaque 350 and ingestion of dilute Barium. Images obtained through the lung bases show areas of consolidation and/or atelectasis at the right lung base, suspected pulmonary infarct in a patient with pulmonary emboli, superimposed pneumonia not excluded. Liver, spleen and pancreas appear normal. Gallbladder is contracted and CT normal. No biliary dilatation seen. Abdominal aorta is of normal diameter and no major vascular abnormality seen. Adrenals and kidneys appear normal. No urinary tract calcification or obstruction. No evidence of bowel obstruction or diverticulitis. Appendix appears normal. No significant abdominal wall hernia seen. No abdominal or pelvic adenopathy CONCLUSION: No evidence of acute intra-abdominal process. Exam(s) 04/07/2019 a US:US extremity venous BI SYMPTOM/DIAGNOSIS: ACUTE PE'S DUPLEX VENOUS ULTRASOUND BOTH LOWER EXTREMITIES: 04/07 Duplex evaluation of the deep venous system both lower extremities was performed according to the usual protocol. There is no evidence of a DVT on the right. On the left the femoral and popliteal veins are unremarkable to the level of the distal popliteal vein. There is thrombus in the distal popliteal vein and a posterior tibial vein. These are nonocclusive thrombi with unremarkable venous flow through this region. CONCLUSION: 1. No evidence of right lower extremity DVT 2. Non occlusive DVT in distal popliteal vein and a posterior tibial vein on the left. --------- Exam(s) 04/07/2019 a US:US echocardiogram Date of study: 04/07/2019 Transthoracic Echocardiography M-mode, complete 2D, complete spectral Doppler, and color Doppler *STUDY CONCLUSIONS* Summary: 1. Left ventricle: The cavity size was normal. Systolic function was normal. The estimated ejection fraction was 60-65%. Diastolic parameters were normal. There was no evidence of elevated ventricular filling pressure by Doppler parameters. 2. Mitral valve: There was mild regurgitation. 3. Right ventricle: The cavity size was normal. Wall thickness was normal. Systolic function was normal. 4. Atrial septum: No defect or patent foramen ovale was identified. 5. Pulmonary arteries: Pulmonary systolic pressure was in the range of 10mm Hg to 20mm Hg. 6. Inferior vena cava: The vessel was normal in size. The respirophasic diameter changes were in the normal range (greater than or equal to 50%), consistent with normal central venous pressure. Labs on day of discharge: Labs from last 24 hours 04/08/19 04/08/19 04/07/19 06:30 06:30 14:45 WBC 11.46 H RBC 4.70 Hgb 14.8 Hct 44.7 MCV 95.1 H MCH 31.5 MCHC 33.1 RDW 13.6 Plt Count 303 MPV 9.9 Immature Gran % 0.0 Neutrophils % 58.0 Band Neutrophils % 3.0 Lymphocytes % 24.0 Atypical Lymphs % 4 Monocytes % 10.0 Eosinophils % 1.0 Basophils % 0.0 Absolute Neutrophils 6.99 H Absolute Lymphocytes 3.21 Absolute Monocytes 1.15 H Absolute Eosinophils 0.11 Absolute Basophils 0.00 Differential Comment Manual differential RBC Morphology See below Polychromasia Present PNH RBC Partial Ag Loss Pending PNH RBC Comp Ag Loss Pending PNH % Granulocytes Pending PNH % Monocytes Pending PNH Interpretation Pending Silica Clot Time Scrn Dil Stefan Viper Venom Lupus Anticoag Interp Sodium 137 Potassium 3.8 Chloride 101 Carbon Dioxide 24.0 Anion Gap 12.0 H BUN 15 Creatinine 0.76 Estimated GFR/1.73 m2 >= 60.00 Glucose 93 Calcium 9.0 Magnesium 2.1 Legionella Source Legionella DNA (PCR) M. pneumoniae Source M. pneumoniae (PCR) Ur Strep pneumoniae Ag JAK2 V617F Mutation Pending JAK2 V617F Pending 04/07/19 04/07/19 04/07/19 14:45 13:29 12:30 WBC RBC Hgb Hct MCV MCH MCHC RDW Plt Count MPV Immature Gran % Neutrophils % Band Neutrophils % Lymphocytes % Atypical Lymphs % Monocytes % Eosinophils % Basophils % Absolute Neutrophils Absolute Lymphocytes Absolute Monocytes Absolute Eosinophils Absolute Basophils Differential Comment RBC Morphology Polychromasia PNH RBC Partial Ag Loss PNH RBC Comp Ag Loss PNH % Granulocytes PNH % Monocytes PNH Interpretation Silica Clot Time Scrn Pending Dil Stefan Viper Venom Pending Lupus Anticoag Interp Pending Sodium Potassium Chloride Carbon Dioxide Anion Gap BUN Creatinine Estimated GFR/1.73 m2 Glucose Calcium Magnesium Legionella Source Pending Legionella DNA (PCR) Pending M. pneumoniae Source Pending M. pneumoniae (PCR) Pending Ur Strep pneumoniae Ag JAK2 V617F Mutation JAK2 V617F 04/06/19 01:22 WBC RBC Hgb Hct MCV MCH MCHC RDW Plt Count MPV Immature Gran % Neutrophils % Band Neutrophils % Lymphocytes % Atypical Lymphs % Monocytes % Eosinophils % Basophils % Absolute Neutrophils Absolute Lymphocytes Absolute Monocytes Absolute Eosinophils Absolute Basophils Differential Comment RBC Morphology Polychromasia PNH RBC Partial Ag Loss PNH RBC Comp Ag Loss PNH % Granulocytes PNH % Monocytes PNH Interpretation [place] Time Scrn Dil Stefan Viper Venom Lupus Anticoag Interp Sodium Potassium Chloride Carbon Dioxide Anion Gap BUN Creatinine Estimated GFR/1.73 m2 Glucose Calcium Magnesium Legionella Source Legionella DNA (PCR) M. pneumoniae Source M. pneumoniae (PCR) Ur Strep pneumoniae Ag Negative JAK2 V617F Mutation JAK2 V617F Preliminary micro results at discharge 04/05/19 21:20 Blood Culture - Preliminary Blood NO GROWTH 48 HOURS 04/05/19 21:20 Blood Culture - Preliminary Blood NO GROWTH 48 HOURS PFSH Medical History Benign colon polyp (Acute) Cervical disc disease (Chronic) Cervical disc disorder (Acute) Duodenitis (Inactive) Erectile dysfunction (Acute) GERD (gastroesophageal reflux disease) (Chronic) Migraine (Acute 01/09/17) Migraine (Chronic) Surgical History Colonoscopy - MAC Family History Father CAD (coronary artery disease) Heart disease Alzheimer's dementia Brother Hyperlipidemia Depression Brother Depression Hyperlipidemia Essential hypertension Maternal Grandfather Essential hypertension Maternal Grandmother Diabetes GREAT GRANDFATHER Myocardial infarction Paternal Grandfather Liver cirrhosis Colon cancer Paternal Grandmother Stroke Social History Smoking/Tobacco Use Status: Current every day Tobacco Type: cigarettes Quit status: has quit before Second Hand Exposure: Yes Alcohol Intake: current Alcohol Intake frequency: holidays/special occasions only Alcohol type: hard liquor Drug use: Never Substance use type: does not use Caregiver/Support person: No Household members: spouse Housing: house Communication Needs: None Do you need help understanding health information?: Rarely Pets and animals: Yes Pets and animals: dog(s) Sexually active: Yes Do you think of yourself as: straight/heterosexual Current gender identity: male What is your relationship status?: How often do you talk on the phone with friends or family?: three or more times per week How often do you get together with friends or relatives?: once per week How often do you attend gnosticist or advent services?: decline to answer Do you belong to any clubs or organized social groups?: no Panel score (0-1 are the most socially isolated patients): 2 What type of physical activity do you participate in: none Seatbelt use: always Helmet use: Yes Drive intox or ride w/intox cross country truck driver: No
[2019-04-08 11:17] VITALS: BP 129/77; PULSE 97; RESP 18; TEMP 36.4; O2SAT 96
[2019-04-08 12:23] VITALS: PULSE 102
--- NOTE | 2019-04-08 17:19 | PDOC.CMDIS ---
- If Service Date Differs Date of service: 04/08/19 Time of Service: 17:19 LACE Index Scoring Tool - Questions: Length of Stay (in days): 3 Acuity (Admit via E.D.?): Yes E.D. Visits: 1 - Answers: Total Score: 7 Risk of Readmission: Low Risk Care Management Discharge Reason for Hospitalization: Community Aquired Pneumonia Discharge Plan: Eliot will be discharged home with no new services. He will be started on Eliquis to treat his pulmonary emboli and follow up with his PCP and the thrombus clinic at [facility].his Neva will transport via private vehicle. Patient/Family Education Needs: Discharge plan, limitations, follow up plan, Ask Me Three.
[2019-04-09 00:54] LABS: Mycoplasma Pneumoniae PCR Negative; Specimen source SPUTUM
[2019-04-09 18:18] LABS: JAK2 Result see interpretation
[2019-04-10 17:11] LABS: Dilute Russell Viper Venom 36.7 secs; LA Cascade Summary SEE COMMENTS; Silica Clotting Time 38.1 sec
== END 2019-04-08 12:38 | disposition home or self-care (01) | DRG 176 ==
LOC: ER 23:43 → MS 23:56
PROVIDERS: Admitting Provider Internal Medicine; Emergency Provider Student in an Organized Health Care Education/Training Program; PCP Family Medicine; Visit Provider Internal Medicine
DX: I26.99 Other pulmonary embolism without acute cor pulmonale (principal); I82.432 Acute embolism and thrombosis of left popliteal vein; I82.442 Acute embolism and thrombosis of left tibial vein; F17.210 Nicotine dependence, cigarettes, uncomplicated; J44.9 Chronic obstructive pulmonary disease, unspecified; M79.662 Pain in left lower leg
CPT/HCPCS: 36410; 36415; 71275; 80048; 80053; 82805; 84145; 87040; 87116; 87449; 87801; 88184; 88185; 88188; 93005; 96361; 96365; 96375; 96376; 99223; 99232; 99239; 99285; 74177; 81270; 83605; 83735; 83880; 84443; 84484; 85025; 85610; 85730; 87205; 87450; 87581; 93010; 93306; 93970; J0131; J0696; J1650; J2270; J2930; J3490; J7512; Q9967

== ENCOUNTER 2019-04-19 22:44 | Emergency (ER) | payer BC, SELFPAY ==
[2019-04-19 22:47] VITALS: BP 147/92; PULSE 80; RESP 16; TEMP 36.9; O2SAT 98
[2019-04-19 23:12] VITALS: PULSE 73; RESP 21; O2SAT 98
[2019-04-19 23:20] VITALS: PULSE 78; RESP 20; O2SAT 95
[2019-04-19 23:29] LABS: Abs Immature Grans 0.04 k/cumm (0.0-0.09); Absolute Basophil Count 0.03 k/cumm (0.0-0.2); Absolute Eosinophil Count 0.13 k/cumm (0.0-0.7); Absolute Lymphocyte Count 3.69 k/cumm (1.2-3.4); Absolute Monocyte Count 0.85 k/cumm (0.11-0.7); Absolute Neutrophil Count 5.28 k/cumm (1.2-6.7); Basophils % 0.3; Eosinophils % 1.3; HCT 42.8 % (40.0-50.0); HGB 14.3 g/dL (13.5-17.5); Immature Grans % 0.4; Lymphocytes % 36.8; Mean Corp. HGB Concentration 33.4 g/dL (32.0-36.0); Mean Corpuscular Hemoglobin 31.8 pg (27.0-33.0); Mean Corpuscular Volume 95.1 fL (80-95); Mean Platelet Volume 9.4 fL (8.0-11.0); Monocytes % 8.5; Neutrophils % 52.7; Platelet Count 354 x1000/uL (130-400); RBC Distribution Width 13.4 % (11.8-14.1); White Blood Cell Count 10.02 k/cumm (4.4-10.8)
[2019-04-19 23:30] VITALS: PULSE 78; RESP 17; O2SAT 96
--- NOTE | 2019-04-19 23:32 | ED.GENADUL_ITS ---
Discharge Plan Disposition Patient Disposition: HOME Condition: Stable Discharge Details Chief Complaint: Vascular Clinical Impression: Leg pain, Chronic chest pain, History of pulmonary embolism, Chronic anticoagulation Primary Care Provider: Jarvis Camilo ED Provider: Tyra Jacinto Home Meds and New Rx's Prescriptions: Continued sildenafil [Viagra] 100 mg tablet 100 mg PO DAILY PRN (Reason: erectile dysfunction) Qty: 12 RF: 10 citalopram 20 mg tablet 20 mg PO BID Qty: 180 RF: 3 sumatriptan succinate 100 mg tablet 100 mg PO as directed Qty: 6 RF: 2 Shingrix Adjuvant Component-PF suspension 0.5 ml IM DAILY Qty: 0.5 RF: 1 lidocaine 5 % adhesive patch,medicated 1 patch TP DAILY Qty: 15 RF: 0 cyclobenzaprine 5 mg tablet 5 mg PO TID PRN (Reason: muscle spasm) Qty: 14 RF: 0 calcium carbonate [Tums Ultra] 400 MG tablet,chewable 400 mg PO PRN RF: 0 bupropion HCl [Wellbutrin SR] 150 mg tablet sustained-release 12 hr 150 mg PO QAM Qty: 90 RF: 3 rivaroxaban 15 mg tablet 15 mg PO BID Qty: 26 RF: 0 oxycodone 5 mg Tablet 5 mg PO Q4H PRN PRNQty: 21 RF: 0 pantoprazole [Protonix] 40 mg tablet,delayed release (DR/EC) 40 mg PO DAILY Qty: 30 RF: 0 Discharge Instructions Instructions: Chronic Pain (ED), Leg Pain (ED) Additional Instructions: Take your Xarelto as directed. Follow-up with your scheduled appointment with hematology at [facility]. Follow-up with your primary care doctor this week for reevaluation. Return to the emergency department if you develop any worsening or new concerning symptoms. If you continue to have left calf pain, you can return to the emergency department for an ultrasound which will be available Sunday morning. Discharge Data Discharge Date/Time-TO BE ENTERED AT DEPARTURE: 04/20/19 02:09 Discharge Physician: Tyra Jacinto Medical Decision Making 49-year-old male recently diagnosed with pulmonary embolism and infarction on admission here 2 weeks ago who presents with left leg, right chest and neck pain tonight. States he has had this similar intermittent right chest and neck pain since his diagnosis 2 weeks ago and states this is no different than usual. States when he was diagnosed with a left leg DVT 2 weeks ago, he had had intermittent left calf pain. Tonight he admits to a very brief period of left calf pain but states this resolved and now mainly complains of pain in the left knee and thigh which is also now resolved. He currently denies any symptoms. Screening labs ordered on arrival by nurse. D-dimer 702. Troponin negative. Normal white blood cell count. Patient has no acute findings on exam. He is neurovascularly intact. Denies any tearing chest pain or neurological symptoms, so doubt dissection. He complains of minimal left knee and thigh pain as his main leg complaint which does not appear consistent with DVT. Discussed with patient at length that as he is already on anticoagulation and has not missed any doses, a new pulmonary embolism would be unlikely. However considering patient's history and symptoms, will obtain a CT chest. We do not have ultrasound available to assess his leg DVT. CT chest notes previously seen pulmonary embolism and infarction but no new pulmonary emboli as well as previous other emboli have resolved. Patient had an EKG done which noted a rate of 65, sinus, with no acute ST ischemic changes. It was read as possibly anterior lateral ST elevation, but this appears consistent with repolarization and does not appear significantly d ifferent from previous EKG this month. A repeat EKG was done which again does not note acute ST ischemic changes. Patient denies any symptoms at this time and feels good to go home. He is advised to follow-up with his primary care doctor for reevaluation and with his scheduled appoint with [facility] hematology for further evaluation of the etiology of his PE. He has a encouraged to return here if he has any worsening or new concerning symptoms. Medical Records Medical records reviewed: Yes I reviewed the patient's medical records. Imaging Data Radiologic Study: Radiologist's impression: CT Angiography Chest With Contrast EXAM DATE/TIME: 04/19/2019 11:59 PM CLINICAL HISTORY: 49 years old, male; Right-sided chest pain; Patient HX: R sided chest pain; Additional info: R/O pe TECHNIQUE: Imaging protocol: Computed tomographic angiography of the chest with intravenous contrast. 3D rendering: MIP reconstructed images were created and reviewed. COMPARISON: CT CHEST PE CTA 04/05/2019 10:00 PM FINDINGS: Pulmonary arteries: Segmental size pulmonary embolus in the right middle lobe. Aorta: Unremarkable. No aortic aneurysm. No aortic dissection. Lungs: Mild emphysematous changes. Majority of the right base consolidation seen on the prior study has resolved. A peripheral focal consolidation has developed in the right middle lobe. Pleural space: Unremarkable. No pneumothorax. No pleural effusion. Heart: Unremarkable. No pericardial effusion. No obvious heart strain. Lymph nodes: Unremarkable. No enlarged lymph nodes. Bones/joints: Unremarkable. No acute fracture. Soft tissues: Unremarkable. IMPRESSION: Segmental size pulmonary embolus in the right middle lobe is unchanged but a pulmonary infarct has developed in its distribution. Several other very small emboli seen on the prior study have resolved. No new emboli. Lab Data Lab results reviewed: Yes I reviewed the patient's lab results. Laboratory Tests Range/Units 04/19/19 04/19/19 04/19/19 23:10 23:10 23:10 WBC (4.4-10.8) k/cumm 10.02 RBC (4.50-6.00) m/cumm 4.50 Hgb (13.5-17.5) g/dL 14.3 Hct (40.0-50.0) % 42.8 MCV (80-95) fL 95.1 H MCH (27.0-33.0) pg 31.8 MCHC (32.0-36.0) g/dL 33.4 RDW (11.8-14.1) % 13.4 Plt Count (130-400) x1000/uL 354 MPV (8.0-11.0) fL 9.4 Immature Gran % 0.4 Neutrophils % 52.7 Lymphocytes % 36.8 Monocytes % 8.5 Eosinophils % 1.3 Basophils % 0.3 Absolute Neutrophils (1.2-6.7) k/cumm 5.28 Absolute Lymphocytes (1.2-3.4) k/cumm 3.69 H Absolute Monocytes (0.11-0.7) k/cumm 0.85 H Absolute Eosinophils (0.0-0.7) k/cumm 0.13 Absolute Basophils (0.0-0.2) k/cumm 0.03 PT (9.3-11.0) sec INR (0.9-1.1) D-Dimer (<500) ng/mlFEU 702 H Sodium (136-145) mmol/L 140 Potassium (3.5-5.1) mmol/L 4.0 Chloride (98-107) mmol/L 103 Carbon Dioxide (21.0-32.0) mmol/L 26.9 Anion Gap (3-11) mmol/L 10.1 BUN (7-18) mg/dL 16 Creatinine (0.70-1.30) mg/dL 1.10 Estimated GFR/1.73 m2 (mL/min/1.73m2) >= 60.00 Glucose (70-100) mg/dL 117 H Calcium (8.5-10.1) mg/dL 8.6 Total Bilirubin (0.2-1.0) mg/dL 0.2 AST (15-37) U/L 15 ALT (16-63) U/L 36 Alkaline Phosphatase (46-116) U/L 53 Troponin I (0.00-0.06) ng/mL Total Protein (6.4-8.2) g/dL 7.3 Albumin (3.4-5.0) g/dL 3.5 Range/Units 04/19/19 04/19/19 23:10 23:57 WBC (4.4-10.8) k/cumm RBC (4.50-6.00) m/cumm Hgb (13.5-17.5) g/dL Hct (40.0-50.0) % MCV (80-95) fL MCH (27.0-33.0) pg MCHC (32.0-36.0) g/dL RDW (11.8-14.1) % Plt Count (130-400) x1000/uL MPV (8.0-11.0) fL Immature Gran % Neutrophils % Lymphocytes % Monocytes % Eosinophils % Basophils % Absolute Neutrophils (1.2-6.7) k/cumm Absolute Lymphocytes (1.2-3.4) k/cumm Absolute Monocytes (0.11-0.7) k/cumm Absolute Eosinophils (0.0-0.7) k/cumm Absolute Basophils (0.0-0.2) k/cumm PT (9.3-11.0) sec 10.0 INR (0.9-1.1) 1.0 D-Dimer (<500) ng/mlFEU Sodium (136-145) mmol/L Potassium (3.5-5.1) mmol/L Chloride (98-107) mmol/L Carbon Dioxide (21.0-32.0) mmol/L Anion Gap (3-11) mmol/L BUN (7-18) mg/dL Creatinine (0.70-1.30) mg/dL Estimated GFR/1.73 m2 (mL/min/1.73m2) Glucose (70-100) mg/dL Calcium (8.5-10.1) mg/dL Total Bilirubin (0.2-1.0) mg/dL AST (15-37) U/L ALT (16-63) U/L Alkaline Phosphatase (46-116) U/L Troponin I (0.00-0.06) ng/mL < 0.05 Total Protein (6.4-8.2) g/dL Albumin (3.4-5.0) g/dL ECG Data Attestation: I personally reviewed and interpreted this ECG (s) as follows: Interpretation: #1 -- 65 bpm, sinus, There appears to be a repolarization variant noted in 1, 2, V2 through V5 which appears in previous EKG and does not appear consistent with an acute ST elevation change. There is no acute ST depression. IL 150. QTc 424. QRS 112. #2 -- 59 bpm, sinus, no acute ST elevation or depression, IL 150. QTc 412. QRS 112. HPI General Mode of arrival: ambulatory . Date/Time Provider Initiated Documentation: 04/19/19 23:01 . Limitations to Documentation: no limitations . Information obtained by: patient . HPI Narrative: Patient is a 49-year-old male who presents with left leg pain this evening followed by an episode of right- sided chest pain with radiation to his neck. Patient was admitted here 2 weeks ago for multiple pulmonary embolism and infarction and started on anticoagulation. He states he has had this intermittent right-sided chest and neck pain since his diagnosis and states this feels similar to previous episodes. He states he was concerned tonight due to his left leg pain. He states he had a brief period approximately less than 20 minutes of pain in his left calf which was minimal and then resolved and then developed a longer episode of left knee and medial distal thigh pain which is now resolved. Patient states his chest pain feels sharp with intermittent radiation to his right neck and denies any at present. He states 2 weeks ago when he was diagnosed with his DVT and pulmonary embolism, he had been having persistent localized left calf pain. Again he states this is no different than the episodes he has had since his diagnosis of pulmonary embolism 2 weeks ago. Patient states he had been taking Eliquis but developed rash in his primary care doctor started him on Xarelto. He denies missing any doses of his Xarelto. He denies fever, shortness of breath, nausea, vomiting, dizziness. He denies any recent injury. Related Data Home Medications Medication Instructions Recorded Confirmed calcium carbonate [Tums Ultra] 400 mg PO PRN tab.chew 09/25/14 04/19/19 sildenafil 100 mg tablet 100 mg PO DAILY PRN #12 tab 05/14/18 04/19/19 citalopram 20 mg tablet 20 mg PO BID #180 tab-cap 07/19/18 04/19/19 adjuvant AS01B (PF)vial 1 of 2 0.5 ml IM DAILY #0.5 ml 11/15/18 04/19/19 sumatriptan succinate 100 mg tablet 100 mg PO as directed #6 tab-cap 11/15/18 04/19/19 lidocaine 5 % topical patch 1 patch TP DAILY #15 each 02/19/19 04/19/19 cyclobenzaprine 5 mg tablet 5 mg PO TID PRN #14 tab 03/21/19 04/19/19 oxycodone 5 mg PO Q4H PRN PRN #21 tab 04/08/19 04/19/19 pantoprazole [Protonix] 40 mg PO DAILY #30 tab 04/08/19 04/19/19 bupropion HCl 150 mg tablet,12 hr 150 mg PO QAM #90 tab 04/11/19 04/19/19 sustained-release rivaroxaban 15 mg tablet 15 mg PO BID #26 tab 04/14/19 04/19/19 Previous Rx's Medication Instructions Recorded sildenafil 100 mg tablet 100 mg PO DAILY PRN #12 tab 05/14/18 citalopram 20 mg tablet 20 mg PO BID #180 tab-cap 07/19/18 adjuvant AS01B (PF)vial 1 of 2 0.5 ml IM DAILY #0.5 ml 11/15/18 sumatriptan succinate 100 mg tablet 100 mg PO as directed #6 tab-cap 11/15/18 lidocaine 5 % topical patch 1 patch TP DAILY #15 each 02/19/19 cyclobenzaprine 5 mg tablet 5 mg PO TID PRN #14 tab 03/21/19 oxycodone 5 mg PO Q4H PRN PRN #21 tab 04/08/19 pantoprazole [Protonix] 40 mg PO DAILY #30 tab 04/08/19 bupropion HCl 150 mg tablet,12 hr 150 mg PO QAM #90 tab 04/11/19 sustained-release rivaroxaban 15 mg tablet 15 mg PO BID #26 tab 04/14/19 Allergies Allergy/AdvReac Type Severity Reaction Status Date / Time aspartame Allergy Severe facial Verified 04/16/19 09:47 numbness; muscle spasms ranitidine HCl [From Zantac] AdvReac Severe Chest pain Verified 04/16/19 09:47 ibuprofen AdvReac Unknown ABDOMINAL Verified 04/16/19 09:47 PAIN General Stated Complaint: Vascular RAYMOND: 2 Review of Systems Review of Systems All systems reviewed & are unremarkable except as noted in HPI and below Constitutional Reports as per HPI, Denies chills and Denies fever(s) Eyes Denies blurry vision ENT Denies dizziness, Denies sore throat and Denies throat swelling Cardiovascular Reports chest pain and Denies dyspnea Respiratory Denies cough and Denies dyspnea Gastrointestinal Denies abdominal pain, Denies diarrhea and Denies vomiting Genitourinary Denies hematuria and Denies dysuria Musculoskeletal Denies back pain and Denies numbness Comments: leg pain Integumentary/Breasts Denies lesions and Denies rash Neurologic Denies dizziness, Denies focal weakness and Denies numbness Allergic/Immunologic Denies throat swelling [facility] Medical History BPH (benign prostatic hyperplasia) (Inactive) Cervical disc disease (Chronic) Duodenitis (Inactive) 08/31/15; DR. ANDERSON; [place] Erectile dysfunction (Acute) GERD (gastroesophageal reflux disease) (Chronic) Hyperlipemia (Inactive) Lumbar disc disease with radiculopathy (Inactive) Migraine (Chronic) Pulmonary embolism and infarction (Inactive) [place] History [place] [facility] [place] [place] Family History Father CAD (coronary artery disease) [employer]; NON SMOKER; NON DRINKER Heart disease Alzheimer's dementia Brother Hyperlipidemia Depression Brother Depression Hyperlipidemia Essential hypertension Maternal Grandfather Essential hypertension Maternal Grandmother Diabetes GREAT GRANDFATHER Myocardial infarction Paternal Grandfather Liver cirrhosis Colon cancer Paternal Grandmother Stroke Social History Smoking/Tobacco Use Status: Current every day Tobacco Type: cigarettes Quit status: has quit before Second Hand Exposure: Yes Alcohol Intake: current Alcohol Intake frequency: holidays/special occasions only Alcohol type: hard liquor Drug use: Never Substance use type: does not use Caregiver/Support person: No Household members: spouse Housing: house Communication Needs: None Do you need help understanding health information?: Rarely Pets and animals: Yes Pets and animals: dog(s) Sexually active: Yes Do you think of yourself as: straight/heterosexual Current gender identity: male What is your relationship status?: How often do you talk on the phone with friends or family?: three or more times per week How often do you get together with friends or relatives?: once per week How often do you attend druze or restorationism services?: decline to answer Do you belong to any clubs or organized social groups?: no Panel score (0-1 are the most socially isolated patients): 2 What type of physical activity do you participate in: none Seatbelt use: always Helmet use: Yes Drive intox or ride w/intox chassis driver: No Exam Const General: cooperative, healthy appearing and no acute distress HENAL Head: normal to inspection Face and sinus: normal facial exam Eyes General: appearance normal, both eyes and all related structures Pupils: PERRL EOM: EOM intact bilaterally Neck Neck: normal visual inspection and No submandibular swelling Lymphatic: no lymphadenopathy noted Chest Chest: normal inspection of the chest and no tenderness Resp Effort & Inspection: normal respiratory effort and able to speak in complete sentences Auscultation: clear to auscultation bilaterally Cardio Rate: regular rate Rhythm: regular rhythm GI Inspection: normal to inspection Palpation: soft, not firm, not rigid and nontender Auscultation: normal bowel sounds Back/Spine/Pelvis Thoracic/Lumbar Spine: thoracic and lumbar spine normal to inspection Skin General skin exam: no rashes or lesions noted Neuro General: alert, awake and oriented x3 Cognition: normal cognition Speech: speech normal Motor: muscle tone normal throughout Sensory Exam: no sensory deficits noted Other: Muscle strength 5/5 bilateral upper and lower extremities. Extrem General: normal to inspection, full ROM, normal capillary refill, no calf tenderness bilaterally and no edema Other: No calf tenderness bilaterally. Negative Homans sign bilaterally. Normal left knee and thigh exam. There is no evidence of ecchymosis, edema, erythema, no lesions or rash. There is no pain with range of motion at hips or knees bilaterally. Bilateral distal pulses intact. Psych Appearance: grossly normal Mental Status: mental status grossly normal Speech and Movement: speech and movement normal Affect: normal affect Course Vital Signs Temperature 98.4 F 04/19/19 22:47 Pulse 80 04/19/19 22:47 Respiratory Rate 16 04/19/19 22:47 Blood Pressure 147/92 H 04/19/19 22:47 Pulse Oximetry 98 04/19/19 22:47 Temperature 98.4 F 04/19/19 22:47 Temperature Source Skin 04/19/19 22:47 Pulse 80 04/19/19 22:47 Pulse 73 04/19/19 23:12 Respiratory Rate 21 04/19/19 23:12 Respiratory Effort Non-Labored 04/19/19 22:52 Blood Pressure 147/92 H 04/19/19 22:47 Blood Pressure Position Sitting 04/19/19 22:47 Pulse Oximetry 98 04/19/19 23:12 Oxygen Delivery Method Room Air 04/19/19 22:47 Oxygen Flow Rate 0 04/19/19 22:47 Pain Level 3 04/19/19 22:52 Lab/Test Results Lab/Test Results: Laboratory Tests Range/Units 04/19/19 23:10 WBC (4.4-10.8) k/cumm 10.02 RBC (4.50-6.00) m/cumm 4.50 Hgb (13.5-17.5) g/dL 14.3 Hct (40.0-50.0) % 42.8 MCV (80-95) fL 95.1 H MCH (27.0-33.0) pg 31.8 MCHC (32.0-36.0) g/dL 33.4 RDW (11.8-14.1) % 13.4 Plt Count (130-400) x1000/uL 354 MPV (8.0-11.0) fL 9.4 Immature Gran % 0.4 Neutrophils % 52.7 Lymphocytes % 36.8 Monocytes % 8.5 Eosinophils % 1.3 Basophils % 0.3 Absolute Neutrophils (1.2-6.7) k/cumm 5.28 Absolute Lymphocytes (1.2-3.4) k/cumm 3.69 H Absolute Monocytes (0.11-0.7) k/cumm 0.85 H Absolute Eosinophils (0.0-0.7) k/cumm 0.13 Absolute Basophils (0.0-0.2) k/cumm 0.03
[2019-04-19 23:40] VITALS: PULSE 81; RESP 22; O2SAT 98
[2019-04-19 23:44] LABS: ALT 36 U/L (16-63); AST 15 U/L (15-37); Albumin 3.5 g/dL (3.4-5.0); Alkaline Phosphatase 53 U/L (46-116); Anion Gap 10.1 mmol/L (3-11); BUN 16 mg/dL (7-18); Bilirubin, Total 0.2 mg/dL (0.2-1.0); CO2 26.9 mmol/L (21.0-32.0); Calcium 8.6 mg/dL (8.5-10.1); Chloride 103 mmol/L (98-107); Glucose 117 mg/dL (70-100); Sodium 140 mmol/L (136-145); Total Protein 7.3 g/dL (6.4-8.2)
[2019-04-19 23:50] VITALS: PULSE 86; RESP 37; O2SAT 95
--- NOTE | 2019-04-19 23:57 | DI.CT_ITS ---
SYMPTOMS/DIAGNOSIS: RIGHT-SIDED CHEST PAIN, ? PE CHEST CT FOR PULMONARY EMBOLISM: CT angiography was performed with multi slice acquisition and multi planar and 3D reconstruction. Comparison is made with March,. Filling defects are seen in the right middle lobe pulmonary artery branches. There is now increased density seen peripherally in the right middle lobe consistent with pulmonary infarct. No other definite pulmonary emboli are seen. No pleural or pericardial effusions are identified. There are underlying emphysematous changes. IMPRESSION: Right middle lobe pulmonary artery emboli with peripheral right middle lobe infarct.
[2019-04-19 23:59] LABS: D-Dimer 702 ng/mlFEU (<500)
[2019-04-20] VITALS (18 sets, daily range): BP systolic 107–124; BP diastolic 54–74; PULSE 62–79; RESP 13–30; O2SAT 94–98
[2019-04-20 00:21] LABS: Troponin I < 0.05 ng/mL (0.00-0.06)
[2019-04-20] MEDS: Omnipaque 350 MG/ML 100 ML BTL IJ (00:28)
--- NOTE | 2019-04-20 00:53 | DI.VRAD_ITS ---
EXAM: CT Angiography Chest With Contrast EXAM DATE/TIME: 04/19/2019 11:59 PM CLINICAL HISTORY: 49 years old, male; Right-sided chest pain; Patient HX: R sided chest pain; Additional info: R/O pe TECHNIQUE: Imaging protocol: Computed tomographic angiography of the chest with intravenous contrast. 3D rendering: MIP reconstructed images were created and reviewed. COMPARISON: CT CHEST PE CTA 04/05/2019 10:00 PM FINDINGS: Pulmonary arteries: Segmental size pulmonary embolus in the right middle lobe. Aorta: Unremarkable. No aortic aneurysm. No aortic dissection. Lungs: Mild emphysematous changes. Majority of the right base consolidation seen on the prior study has resolved. A peripheral focal consolidation has developed in the right middle lobe. Pleural space: Unremarkable. No pneumothorax. No pleural effusion. Heart: Unremarkable. No pericardial effusion. No obvious heart strain. Lymph nodes: Unremarkable. No enlarged lymph nodes. Bones/joints: Unremarkable. No acute fracture. Soft tissues: Unremarkable. IMPRESSION: Segmental size pulmonary embolus in the right middle lobe is unchanged but a pulmonary infarct has developed in its distribution. Several other very small emboli seen on the prior study have resolved. No new emboli. Dictated and Authenticated by: Edis Tineo MD. Ordering:JUAN DAVID Mary MD
== END 2019-04-20 02:09 | disposition home or self-care (01) ==
PROVIDERS: Emergency Provider Physician Assistant; PCP Family Medicine
DX: M79.605 Pain in left leg (principal); R07.89 Other chest pain; G89.29 Other chronic pain; Z79.01 Long term (current) use of anticoagulants; M54.2 Cervicalgia; Z86.711 Personal history of pulmonary embolism; F17.210 Nicotine dependence, cigarettes, uncomplicated
CPT/HCPCS: 36415; 71275; 80053; 93005; 99285; 84484; 85025; 85379; 85610; 93010; J3490

== ENCOUNTER 2020-02-09 00:46 | Outpatient (CLI) | payer OTHER, SELFPAY ==
--- NOTE | 2020-02-09 | DI.MRI_ITS ---
EXAM: MR LUMBAR SPINE WO CLINICAL HISTORY: BACK INJURY WITH INCREASE IN RLE RADICULOPATHY,M54.16, RT LEG PAIN,M79.604. TECHNIQUE: Multiplanar multisequence MRI of the Lumbar spine was performed. FINDINGS: Bones: The last intervertebral disc space is designated the L5/S1 level for the numbering purpose of this examination. The vertebral body heights are well maintained. Alignment is satisfactory. The si gnal characteristics are unremarkable. Cord: The conus tip ends at the T12 level. It is of normal size and signal intensity. T12-L1: No disc herniations or bulges are present. No central spinal canal or neural foraminal stenos is. L1-2: No disc herniations or bulges are present. No central spinal canal or neural foraminal stenosis . L2-3: No disc herniations or bulges are present. No central spinal canal or neural foraminal stenosis . L3-4: No disc herniations or bulges are present. No central spinal canal or neural foraminal stenosis . L4-5: There is a mild diffuse disc bulge. Mild degenerative changes of the facets are present. No c entral spinal canal or neural foraminal stenosis. L5-S1: There is a mild diffuse disc bulge. Mild degenerative changes of the facets are present. No central spinal canal or neural foraminal stenosis. Soft tissues: The visualized SI joints and sacrum are well maintained. The paraspinal soft tissues ar e unremarkable. IMPRESSION: No evidence of significant spinal stenosis or neuroforaminal narrowing. DATA REPOSITORY:
--- NOTE | 2020-02-09 | DI.MRI_ITS ---
EXAM: MR LOWER JOINT RT WO CLINICAL HISTORY: WORK INJURY,WORSENING RT HIP AND LEG PAIN, M79.604,M25.551. TECHNIQUE: Multiplanar multisequence MRI was performed. COMPARISON: No exams were available for comparison FINDINGS: There is mild nonspecific marrow edema in the left pubic bone. There is a subchondral cyst seen in t he posterior aspect of the right femoral head. No findings to suggest an occult fracture or avascula r necrosis. The muscles show normal signal and size. No muscular fatty atrophy is present. The ten dons are intact. No soft tissue mass or focal fluid collection is seen. The labrum appears grossly unremarkable on this noncontrast examination. No significant joint effusion is seen. IMPRESSION: No acute abnormality. DATA REPOSITORY:
== END 2020-02-09 01:06 ==
PROVIDERS: PCP Family Medicine; Visit Provider Neurological Surgery
DX: M54.16 Radiculopathy, lumbar region (principal); M79.604 Pain in right leg; M51.36 Other intervertebral disc degeneration, lumbar region; M25.851 Other specified joint disorders, right hip
CPT/HCPCS: 73721; 72148

== ENCOUNTER 2020-02-09 08:35 | Outpatient (CLI) | payer BC, SELFPAY ==
[2020-02-10 01:42] LABS: COVID-19 RT-PCR UVMMC Result Negative (Negative)
== END 2020-02-09 08:55 ==
PROVIDERS: PCP Family Medicine; Visit Provider Family Medicine
DX: Z11.59 Encounter for screening for other viral diseases (principal)
CPT/HCPCS: U0003

== ENCOUNTER 2020-02-12 03:07 | Outpatient (CLI) | payer BC, SELFPAY ==
--- NOTE | 2020-02-23 09:08 | W.PFT ---
Date of service: 02/12/20 Time of Service: 03:01 Pulmonary Function Test Result Interpretation Spirometry: Spirometry shows mild obstructive airways disease, with some but not significant bronchodilator response Lung Volumes: Lung volumes show no evidence of restriction, there is mild hyperinflation. Diffusion Capacity: Diffusion capacity is normal Airway Pressure: Airways resistance is normal Impression Mild obstructive airways disease with some, but not significant bronchodilator response. This is associated with mild hyperinflation. Clinical correlation recommended. Clinical Correlation therefore is recommended.
== END 2020-02-12 03:27 ==
PROVIDERS: PCP Family Medicine; Visit Provider Family Medicine
DX: R06.09 Other forms of dyspnea (principal); Z86.711 Personal history of pulmonary embolism; Z87.891 Personal history of nicotine dependence
CPT/HCPCS: 94060; 94726; 94729

== ENCOUNTER 2020-12-28 02:57 | Outpatient (CLI) | payer BC, SELFPAY ==
[2020-12-29 16:06] LABS: COVID-19 RT-PCR UVMMC Result Negative (Negative)
== END 2020-12-28 02:58 | disposition home or self-care (01) ==
LOC: LBO 02:57
PROVIDERS: PCP Family Medicine; Visit Provider Family Medicine
DX: Z20.822 Contact with and (suspected) exposure to COVID-19 (principal)
CPT/HCPCS: U0003

== ENCOUNTER 2021-01-12 04:21 | Outpatient (CLI) | payer BC, SELFPAY ==
[2021-01-12 17:05] LABS: CREATININE 1.1 mg/dL (0.70-1.30)
[2021-01-12 17:11] LABS: Calculated LDL 112 mg/dL (<100); Cholesterol 199 mg/dL (<200); HDL Cholesterol 59 mg/dL (40-60); Triglyceride 144 mg/dL (<150)
[2021-01-12 22:26] LABS: PSA, Screening 0.7 ng/mL (0.0-3.5)
== END 2021-01-12 04:22 | disposition home or self-care (01) ==
LOC: LBO 04:21
PROVIDERS: PCP Family Medicine; Visit Provider Family Medicine
DX: I26.99 Other pulmonary embolism without acute cor pulmonale (principal); Z13.220 Encounter for screening for lipoid disorders; Z12.5 Encounter for screening for malignant neoplasm of prostate
CPT/HCPCS: 36415; 80061; 84153; 82565

== ENCOUNTER 2021-06-20 01:14 | Outpatient (CLI) | payer OTHER, SELFPAY ==
--- NOTE | 2021-06-20 07:30 | DI.MRI_ITS ---
Exam(s) MR LUMBAR SPINE WO EXAM: MR LUMBAR SPINE WO CLINICAL HISTORY: low back pain with radiation,M54.5. TECHNIQUE: Multiplanar multisequence MRI of the Lumbar spine was performed. MR MR LUMBAR SPINE WO from 02/09/2020 MR MR LUMBAR SPINE WO from 02/09/2020 FINDINGS: Five lumbar vertebrae are presumed. Conus medullaris is at normal level. There is no evidence of conus mass nor subjacent clumping of in trathecal nerve roots to suggest arachnoiditis. The distal thecal sac appears unremarkable.There is no evidence of Tarlov intrasacral cysts nor other significant findings within the sacral canal Bones:There are no fractures nor ominous osseous lesions in the lumbar vertebral bodies and visualize d sacrum. With respect to the individual levels... T12-L1: Unremarkable L1-2: Normal disc height and signal. No disc herniation nor central canal stenosis.No foraminal steno sis L2-3: Normal disc height. No disc herniation nor central canal stenosis.No foraminal stenosis.No face t arthropathy. L3-4: Normal disc height. No disc herniation or central canal stenosis.No foraminal stenosis.No face t arthropathy. L4-5: At this level there has been significant deterioration. There is now a prominent posterolatera l left disc herniation extends posteriorly 8 millimeters and also descends approximately 9 millimeter s behind the left side of L5 vertebral body, occupying the left lateral recess and impressing the the trevor sac. As this disc herniation rapidly descends, it does not affect the ipsilateral left neural fo ramen dimensions at L4-5, and indeed both exiting neural foramina at this level are patent. There mi ld degenerative changes in the facet joints bilaterally. L5-S1: Preserved disc height and signal. No disc herniation. No canal stenosis. No foraminal steno sis. Moderate right-sided facet degenerative changes. Facet joint unremarkable. Soft tissues: paraspinal soft tissues appear unremarkable. IMPRESSION: 1. Compared to the prior MRI scans of February 2019 and January 2020 there has been significant deterioratio n at L4-5 level. There is a posterolateral left disc protrusion which has significantly increased in size, presently occupying the left lateral recess and extending caudally for distance of 9 millimete rs, indenting the thecal sac. The disc herniation does not extend into the exiting neural foramina a t the L4-5 level and indeed both exiting neural foramen appear unremarkable. 2. No other disc protrusions evident. 3. No osseous lesions. DATA REPOSITORY:
== END 2021-06-20 01:34 ==
PROVIDERS: PCP Family Medicine; Visit Provider Nurse Practitioner Family
DX: M54.59 Other low back pain (principal); M51.26 Other intervertebral disc displacement, lumbar region
CPT/HCPCS: 72148

== ENCOUNTER 2021-08-10 08:34 | Outpatient (CLI) | payer BC, SELFPAY ==
--- NOTE | 2021-08-10 08:30 | RT.EKG_ITS ---
APPROVED REPORT Exam: Resting ECG Reason for Exam: Pre op ekg per surgery Patient Location: O HR:72 bpm ECG Measurements Heart Rate 72 AXIS LA 166 P 20 QRSd 109 QRS 14 QT 398 T 35 QTc 436 Conclusion Sinus rhythm...normal P axis, V-rate 60- 99 Normal Electrocardiogram
== END 2021-08-10 08:35 | disposition home or self-care (01) ==
LOC: DI.CM 08:36
PROVIDERS: PCP Family Medicine; Visit Provider Family Medicine
DX: Z01.818 Encounter for other preprocedural examination (principal)
CPT/HCPCS: 93010

== ENCOUNTER 2021-11-02 01:46 | Outpatient (CLI) | payer BC, SELFPAY ==
--- NOTE | 2021-11-02 06:00 | DI.CTLCSR_ITS ---
Exam(s) CT CHEST LUNG CANCER SCREEN EXAM: CT CHEST LUNG CANCER SCREEN CLINICAL HISTORY: Screening for lung cancer,former smoker, z12.2. TECHNIQUE: Imaging Protocol: Low Dose Technique CONTRAST MATERIAL: None COMPARISON: CT CT CHEST PE CTA from 04/20/2019 FINDINGS: CHEST: LUNGS: Emphysematous changes again noted. There has been significant improvement when compared to th e prior CT scan of 04/20/2019. Previously present large pleural based infiltrates in the right upper lobe have resolved.. There is mild scarring at this level evident but no ominous nodules. There is a small 4 millimeter fissure based nodule in the lateral aspect of the right major fissure. No pleu ral effusion. In the opposite-left lung there are some benign-appearing unchanged markings in the li ngular segment. There is also a pleural based nodular density in the anterior basal segment of the l eft lower lobe measuring 1.1 x 0.4 cm. This finding was not previously present. No pleural effusion on either side MEDIASTINUM: There is no obvious hilar nor mediastinal adenopathy. CARDIAC: Heart size is normal. There is no pericardial effusion.Moderate coronary artery calcificati on is noted. Ascending thoracic aortic diameters 3.8 cm. OTHER: OSSEOUS: No significant osseous lesions.. IMPRESSION: 1. Significant improvement in the pleural based infiltrates in the right lung when compared to prior study of 04/20/2019. There is only mild residual scarring evident at this level on the present study . 2. Small 4 millimeter fissure based nodule in the right major fissure. Pleural base 11 x 4 millimete r infiltrate in the anterior basal segment of the left lower lobe. This requires follow-up. 3. Lung RADS Cat 3 - Probably Benign: Probably benign finding(s) - short term follow-up suggested; re commend repeat CT scan in 6 months. Include nodules with a low likelihood of becoming a clinically a ctive cancer. Lung-RADS 1.0 CATEGORIES: Category 0 - Prior chest CT exam(s) being located for comparison. Category 1 - Annual screening in 12 months. No nodules or definitely benign nodules. Category 2 - Annual screening in 12 months. Benign appearance. Nodules with low likelihood of becomin g active cancer. Category 3 - 6-month follow-up. Probably benign. Short-term follow-up suggested. Nodules with low lik elihood of becoming active cancer. Category 4A - 3-month follow-up and CT/PET if >8 mm in size. Suspicious finding. Findings which requi re additional testing. Category 4B - Findings which require additional testing and tissue sampling. Category 4X - Category 3 or 4 nodules with additional features or imaging findings that increases the suspicion of malignancy. Modifier S- Potentially clinically significant findings (non lung cancer) RADIATION DOSE DELIVERED: 83.79mGy.cm Total DLP 2.21mGy CTDIvol DATA REPOSITORY: All CT scans at this facility are submitted to the National Radiology Data Registry (NRDR) Dose Index Registry (DIR) with the [employer] (A[employer]). RADIATION OPTIMIZATION: All CT scans at this facility use at least one of these dose optimization te chniques: automated exposure control; mA and/or kV adjustment per patient size (includes targeted exa ms where dose is matched to clinical indication); or iterative reconstruction.
[2021-11-02 08:33] LABS: HCT 44.2 % (40.0-50.0); HGB 14.6 g/dL (13.5-17.5); MCH 31.7 pg (27.0-33.0); MCV 96.1 fL (80-95); MPV 9.3 fL (8.0-11.0); Platelet Count 258 10^3/uL (130-400); RDW 12.2 % (11.8-14.1); RDW-SD 42.6 fL; WBC 7.14 10^3/uL (4.4-10.8)
[2021-11-02 09:08] LABS: Hemoglobin A1C 5.7 % (<5.7)
== END 2021-11-02 02:06 ==
PROVIDERS: PCP Family Medicine; Visit Provider Family Medicine
DX: Z87.891 Personal history of nicotine dependence (principal); R73.9 Hyperglycemia, unspecified; R53.83 Other fatigue; Z12.2 Encounter for screening for malignant neoplasm of respiratory organs; R91.8 Other nonspecific abnormal finding of lung field
CPT/HCPCS: 36415; 71271; 85027; 83036

== ENCOUNTER 2022-09-18 07:23 | Day surgery (SDC) | payer BC, SELFPAY ==
--- NOTE | 2022-09-17 21:17 | W.COLOREPORT ---
Date of service: 09/18/22 Time of Service: 09:52 Colonoscopy Report Date of procedure: 09/18/22 Pre-op diagnosis general: Screening folr colorectal cancer Post-op diagnosis procedure note: other (Colon polyp) Procedure: 1. Colonoscopy 2. Polypectomy by cold forceps Surgeon: Yann Du Anesthesia Type: MAC and General:No Airway Estimated blood loss (mL): 2 Pathology: other (1. colon polyp @ 115 cm) Disposition: same day Indications: Screening for colorectal cancer; family history: paternal grandfather Prep: Miralax/Dulcolax Procedure Start Time: 09:21 Procedure End Time: 09:47 Retraction Time: 20 minutes Findings: Colon polyp at 115cm; normal appearing mucosa Procedure Description: After informed consent was obtained, the patient was taken to the procedure room and placed in a left decubitus position. Monitors were applied and a time out was done. The patient's name, date of , procedure, allergies to medications, and metal in their body were reviewed. The patient was then sedated. Once sedated and comfortable, a digital rectal exam was done. External exam revealed a skin tag. Internal exam revealed normal sphincter tone, and no palpable masses or gross blood. The colonoscope was then introduced and advanced to the cecum under direct visualization without difficulty. The ileocecal valve and appendiceal orifice were visualized. The prep was good? ?The scope was then slowly withdrawn over 20 minutes in a circumferential manner to the rectum. In doing so, one tiny polyp was encountered at 115cm and was taken by cold forceps.? There? was no diverticulosis noted. The mucosa is pink and healthy.? In the rectum, the scope was retroflexed, and mild internal hemorrhoids were noted.? The scope was straightened and withdrawn from the anus. The patient tolerated the procedure well, and there were no immediate complications.? The patient was taken to the Day Surgery Unit recovery?area in good condition. Follow up: await pathology, 5-10 years
--- NOTE | 2022-09-17 21:33 | W.PM.DSUDISC ---
Date of service: 09/18/22 Time of Service: 09:56 Discharge Plan Disposition Patient Disposition: Home Condition: Stable Discharge Details Attending Provider: Yann Du Primary Care Provider: Jarvis Camilo Home Meds and New Rx's Prescriptions: No Action sumatriptan succinate 100 mg tablet 100 mg PO as directed Qty: 6 2RF Rx Instructions: TAKE ONE AT ONSET THEN MAY REPEAT AFTER 2 HR. SI Shingrix Adjuvant Component-PF Suspension 0.5 ml IM DAILY Qty: 0.5 0RF Rx Instructions: This is his 2nd dose; had first dose with you last year bisacodyl [Dulcolax (bisacodyl)] 5 mg tablet,delayed release (DR/EC) 5 mg PO ONCE Qty: 4 0RF Rx Instructions: Take according to provider's instructions for colonoscopy prep. polyethylene glycol 3350 17 gram/dose powder 17 g PO ONCE Qty: 238 0RF Rx Instructions: To be taken as directed by prescriber's office for colonoscopy prep. Eliquis 2.5 mg tablet See Rx Instructions .ROUTE .COMPLEX Qty: 180 3RF Dose Instruction: TAKE ONE TABLET BY MOUTH TWICE A DAY Rx Instructions: TAKE ONE TABLET BY MOUTH TWICE A DAY sildenafil [Viagra] 100 mg tablet 100 mg PO DAILY PRN (Reason: erectile dysfunction) Qty: 12 10RF citalopram 20 mg tablet 30 mg PO DAILY Qty: 135 3RF bupropion HCl [Wellbutrin SR] 150 mg tablet sustained-release 12 hr 150 mg PO BID Qty: 180 3RF Hold Instructions: Home Medication placed on hold at Doctor's office Discharge Instructions Instructions: Colonoscopy (DC), Colorectal Polyps (DC) Additional Instructions: May restart Eliquis on 09/21/22 Activity:: Activity as Tolerated Diet:: As Tolerated DS: Diagnosis Discharge Diagnosis (1) Colon polyp: Status: Acute Asessment and Plan: await pathology
[2022-09-18 07:24] VITALS: BP 113/82; PULSE 69; RESP 18; TEMP 36.5; O2SAT 96
[2022-09-18] MEDS: Lactated Ringers 1,000 ML 80 ML IV (07:59)
--- NOTE | 2022-09-18 08:04 | ANES.PREOP_ITS ---
General Info Date of Service Date Performed: 09/18/22 Height: 6 ft Weight: 104.9 kg Body Mass Index (BMI): 31.4 Surgical Procedure: Operation Date: 09/18/22 08:35 Proposed Procedure Side Surgeon antonio Du MD Meds Allergies and Home Medications Allergies Allergy/AdvReac Type Severity Reaction Status Date / Time aspartame Allergy Severe facial Verified 09/18/22 07:35 numbness; muscle spasms apixaban [From Eliquis] Allergy Unknown RASH, Verified 09/18/22 07:35 ITCHING ranitidine HCl [From Zantac] AdvReac Severe Chest pain Verified 09/18/22 07:35 ibuprofen AdvReac Unknown ABDOMINAL Verified 09/18/22 07:35 PAIN Home Medication Medication Instructions Recorded sumatriptan succinate 100 mg tablet 100 mg PO as directed #6 tab-caps 11/15/18 adjuvant AS01B (PF)vial 1 of 2 0.5 ml IM DAILY #0.5 mL 11/21/19 (Shingrix Adjuvant Component (PF) intramuscular suspension) apixaban 2.5 mg tablet (Eliquis) See Rx Instructions .Route 10/03/21 .COMPLEX #180 tabs sildenafil 100 mg tablet (Viagra) 100 mg PO DAILY PRN erectile 01/27/22 dysfunction #12 tabs citalopram 20 mg tablet 30 mg PO DAILY #135 tab-caps 06/05/22 bupropion HCl 150 mg tablet,12 hr 150 mg PO BID #180 tabs 06/22/22 sustained-release (Wellbutrin SR) bisacodyl 5 mg tablet,delayed 5 mg PO ONCE #4 tabs 08/24/22 release (Dulcolax (bisacodyl)) polyethylene glycol 3350 17 17 g PO ONCE #238 grams 08/24/22 gram/dose oral powder Current Visit Medications: Current Medications Generic Name Dose Route Start Last Admin Trade Name Freq PRN Reason Stop Dose Admin Ringer's Solution 1,000 mls @ 80 mls/hr 09/18/22 06:00 09/18/22 07:59 IV 09/18/22 23:59 80 mls/hr INFUSION HUBERT Administration IV Miscellaneous Supplies 1 each 09/18/22 06:00 Iv Access IV 09/18/22 23:59 DIRECTED HUBERT Sodium Chloride 0 ml 09/18/22 06:00 Normal Saline Flush 10 Ml Syr IV 09/18/22 23:59 PRN PRN Sodium Chloride 0 ml 09/18/22 06:00 Normal Saline 10 Ml Vial IJ 09/18/22 23:59 DIRECTED PRN Sterile Water 0 ml 09/18/22 06:00 Water,Injection,Sterile 10 Ml Vial IJ 09/18/22 23:59 DIRECTED PRN PFSH Active Problems Active Problems: Problem Status Onset Code Backache M54.9 ED (erectile dysfunction) N52.9 GERD (gastroesophageal reflux disease) K21.9 Migraine 01/09/17 G43.909 Multiple allergies 08/15/16 Z88.9 Tobacco use Z72.0 Cervical disc disease M50.90 Constipation K59.00 Community acquired pneumonia of right lung J18.9 Pleurisy R09.1 DVT prophylaxis Z29.9 Pulmonary emboli I26.99 Leg mass R22.40 Depression F32.9 Well adult Lumbar pain with radiation down both legs M54.5 Screening for colon cancer Z12.11 Left leg weakness R29.898 Medical History Medical History BPH (benign prostatic hyperplasia) Duodenitis 08/31/15; DR. ANDERSON; [facility] Erectile dysfunction GERD (gastroesophageal reflux disease) Hyperlipemia Lumbar disc disease with radiculopathy 08/25/21 Migraine Pulmonary embolism and infarction 2019 Medical History Comments:: Pt reports PONV was after leaving on the car ride home after last colo Surgical History Surgical [place] [place] Smoking/Tobacco Use Status: Former Tobacco Use Second hand exposure: Yes Alcohol Alcohol Intake: former Substance Use Substance use: Never Substance use type: does not use Vital Signs and Lab Results Vital Signs Most Recent Vital Signs in EMR: Most Recent Vital Signs Temp Pulse Resp BP Pulse Ox 36.5 C 69 18 113/82 96 09/18/22 07:24 09/18/22 07:24 09/18/22 07:24 09/18/22 07:24 09/18/22 07:24 Lab Results Blood Type / Crossmatch: No Data to Display Complete Blood Count: No Data to Display Complete Metabolic Panel: No Data to Display Liver Function Panel: No Data to Display Coagulation Panel: No Data to Display Cardiac Panel: No Data to Display Arterial Blood Gas: No Data to Display Venous Blood Gas: No Data to Display Pancreas Panel: No Data to Display Thyroid Panel: No Data to Display Infectious Disease: No Data to Display Blood Cultures: No Data to Display Toxicology Panel: No Data to Display Imaging and Studies Imaging and Studies Study information below may be from another EMR and interpreted by another provider. Please see original notes in EMR for more complete details. Echocardiogram Summary: Date of Exam: 04/07/19Sex: M : 1970Age: 49 Exam(s) a US:US echocardiogram *[facility]* *[facility]* [address] [place] [address] Date of study: 04/07/2019 Transthoracic Echocardiography M-mode, complete 2D, complete spectral Doppler, and color Doppler *STUDY CONCLUSIONS* Summary: 1. Left ventricle: The cavity size was normal. Systolic function was normal. The estimated ejection fraction was 60-65%. Diastolic parameters were normal. There was no evidence of elevated ventricular filling pressure by Doppler parameters. 2. Mitral valve: There was mild regurgitation. 3. Right ventricle: The cavity size was normal. Wall thickness was normal. Systolic function was normal. 4. Atrial septum: No defect or patent foramen ovale was identified. 5. Pulmonary arteries: Pulmonary systolic pressure was in the range of 10mm Hg to 20mm Hg. 6. Inferior vena cava: The vessel was normal in size. The respirophasic diameter changes were in the normal range (greater than or equal to 50%), consistent with normal central venous pressure. Pulmonary Function Summary: Date of service: 02/12/20 Time of Service: 03:01 Pulmonary Function Test Result Interpretation Spirometry: Spirometry shows mild obstructive airways disease, with some but not significant bronchodilator response Lung Volumes: Lung volumes show no evidence of restriction, there is mild hyperinflation. Diffusion Capacity: Diffusion capacity is normal Airway Pressure: Airways resistance is normal Impression Mild obstructive airways disease with some, but not significant bronchodilator response. This is associated with mild hyperinflation. Clinical correlation recommended. Clinical Correlation therefore is recommended. Anesthesia Assessment and Plan Anesthesia History Personal History: PONV Family History: No Family History of Anesthesia Complications Exercise Tolerance Exercise Tolerance: Metabolic Equivalents>4 Pertinent Negatives Pertinent Negatives: No Symptoms of GERD Cardiac & Pulmonary Exam Cardiac Exam: Normal S1/S2 Heart Sounds Pulmonary Exam: Clear Bilateral Breath Sounds Implantable Cardiac Device Does patient have a Pacemaker or an ICD?: No Airway Exam Known Difficult Airway: No Mallampati Class: 1 Mouth Opening: Normal (> 3cm) Thyromental Distance: Greater than 3 cm Facial Hair: Full Prater Neck Range of Motion: Full ROM Neck Circumference: Normal Teeth Condition: Normal Dentition ASA Classification ASA Score: ASA 3 Emergency Case?: No NPO Status NPO Status: NPO Clears >2 hours, Solids >8 hours Anesthesia Plan Resuscitation Status: Full Code Anesthesia Technique: General Anesthesia Airway Planned: Natural Airway Monitors Used: Standard Monitors
[2022-09-18 08:06] VITALS: BMI 31.4
--- NOTE | 2022-09-18 09:39 | BOWEL_PTH ---
PATIENT: Eliot Ortiz LOC: [facility] U#:[id number] AGE/SX: 52/M ROOM: RE09/18/[address]: Yann Du : 1970 BED: DIS: 09/18/2022 SPEC #: [id number] RECD: 09/18/22 12:47 STATUS: JOE REQ #: [id number] ADY: 09/18/22 09:[address]: Yann Du DEPT: Surgical Specimen RECD BY: Hilda Oneill ENTERED: 09/18/22 12:49 SP TYPE: Bowel OTHR DR: Jarvis Camilo MD Tissues: 1 - BIOPSY BOWEL Procedures: GROSS AND MICRO LEVEL 4 Comments: [id number]
[2022-09-18 09:53] VITALS: BP 95/69; PULSE 72; RESP 16; TEMP 36.5; O2SAT 92
[2022-09-18 10:20] VITALS: BP 115/81; PULSE 70; RESP 16; TEMP 36.5; O2SAT 96
--- NOTE | 2022-09-18 10:42 | W.ANESPOSTOP ---
Postoperative Evaluation Date, Time and Location Date Performed: 09/18/22 Time Performed: 10:42 Patient Location: Day Surgery Unit Vital Signs Most Recent Imported Vital Signs: Most Recent Vital Signs Temp Pulse Resp BP Pulse Ox 36.5 C 70 16 115/81 96 09/18/22 10:20 09/18/22 10:20 09/18/22 10:20 09/18/22 10:20 09/18/22 10:20 Pain Score Most Recent Pain Score: Most Recent Pain Score Pain Level 0 09/18/22 10:20 Assessment Mental Status: Awake (Alert & Oriented to Patient Baseline) Airway and Respiratory Function: Patent airway with normal (patient baseline) respiratory exam Cardiovascular Function: Hemodynamically Stable Hydration Status: Adequately Hydrated Nausea & Vomiting: No Nausea or Vomiting Pain: Pt. Denies Any Pain Peripheral Nerve Block: Patient did not receive a nerve block
== END 2022-09-18 10:54 | disposition home or self-care (01) ==
PROVIDERS: PCP Family Medicine; Visit Provider Surgery
PROC: 0DJD8ZZ Inspection of Lower Intestinal Tract, Via Natural or Artificial Opening Endoscopic (ICD-10-PCS; CPT 45378; principal; 2022-09-18 08:30)
DX: Z12.11 Encounter for screening for malignant neoplasm of colon (principal); K63.5 Polyp of colon; Z80.0 Family history of malignant neoplasm of digestive organs
CPT/HCPCS: 45380; 88305

== ENCOUNTER 2022-11-02 09:59 | Outpatient (CLI) | payer BC, SELFPAY ==
[2022-11-02 12:33] LABS: Calculated LDL 114 mg/dL (<100); Cholesterol 209 mg/dL (<200); HDL Cholesterol 57 mg/dL (40-60); Triglyceride 194 mg/dL (<150)
[2022-11-02 22:34] LABS: PSA, Screening 0.7 ng/mL (<=3.5)
== END 2022-11-02 10:00 | disposition home or self-care (01) ==
LOC: LOS 09:59
PROVIDERS: PCP Family Medicine; Referring Provider Family Medicine; Visit Provider Family Medicine
DX: E78.5 Hyperlipidemia, unspecified (principal); Z12.5 Encounter for screening for malignant neoplasm of prostate
CPT/HCPCS: 36415; 80061; 84153

== ENCOUNTER 2023-03-29 02:54 | Outpatient (CLI) | payer BC, SELFPAY ==
[2023-03-29 12:17] LABS: HGB 14.2 g/dL (13.5-17.5); MCH 31.3 pg (27.0-33.0); MCV 95 fL (80-95); MPV 10.2 fL (8.0-11.0); Platelet Count 245 10^3/uL (130-400); RBC 4.54 10^6/uL (4.36-5.78); RDW 12.7 % (11.8-14.1); RDW-SD 43.9 fL; WBC 6.68 10^3/uL (4.4-10.8)
[2023-04-05 16:27] LABS: Testosterone, Free 6.56 ng/dL (4.06-15.6); Testosterone, Total 220 ng/dL (240-950)
== END 2023-03-29 02:55 | disposition home or self-care (01) ==
LOC: LOS 02:54
PROVIDERS: PCP Family Medicine; Visit Provider Family Medicine
DX: Z00.00 Encounter for general adult medical examination without abnormal findings (principal); R53.83 Other fatigue; N52.9 Male erectile dysfunction, unspecified; R68.82 Decreased libido
CPT/HCPCS: 36415; 84402; 84403; 85027

== ENCOUNTER 2023-05-23 15:04 | Outpatient (CLI) | payer BC, SELFPAY ==
[2023-05-29 14:45] LABS: Testosterone, Free 9.23 ng/dL (4.06-15.6); Testosterone, Total 299 ng/dL (240-950)
== END 2023-05-23 15:05 | disposition home or self-care (01) ==
LOC: LBO 15:04
PROVIDERS: PCP Family Medicine; Visit Provider Family Medicine
DX: R79.89 Other specified abnormal findings of blood chemistry (principal)
CPT/HCPCS: 36415; 84402; 84403

== ENCOUNTER 2023-11-13 08:35 | Outpatient (CLI) | payer BC, SELFPAY ==
[2023-11-13 12:33] LABS: Calculated LDL 98 mg/dL (<100); Cholesterol 191 mg/dL (<200); HDL Cholesterol 55 mg/dL (40-60); Triglyceride 192 mg/dL (<150)
[2023-11-13 13:13] LABS: Hemoglobin A1C 5.9 % (<5.7)
[2023-11-21 16:16] LABS: Testosterone, Free 8.99 ng/dL (4.06-15.6); Testosterone, Total 229 ng/dL (240-950)
== END 2023-11-13 08:36 | disposition home or self-care (01) ==
LOC: LOS 08:35
PROVIDERS: PCP Family Medicine; Referring Provider Family Medicine; Visit Provider Family Medicine
DX: E11.51 Type 2 diabetes mellitus with diabetic peripheral angiopathy without gangrene (principal); E78.5 Hyperlipidemia, unspecified; Z00.00 Encounter for general adult medical examination without abnormal findings
CPT/HCPCS: 36415; 80061; 84402; 84403; 83036

== ENCOUNTER 2024-01-03 05:20 | Outpatient (CLI) | payer BC, SELFPAY ==
[2024-01-13 11:08] LABS: Testosterone, Free 10.1 ng/dL (4.06-15.6); Testosterone, Total 324 ng/dL (240-950)
== END 2024-01-03 05:21 | disposition home or self-care (01) ==
LOC: LBO 05:20
PROVIDERS: PCP Family Medicine; Visit Provider Family Medicine
DX: R79.89 Other specified abnormal findings of blood chemistry (principal)
CPT/HCPCS: 36415; 84402; 84403

== ENCOUNTER 2024-09-15 03:21 | Outpatient (CLI) | payer BC, SELFPAY ==
[2024-09-22 11:15] LABS: Testosterone, Free 21.2 ng/dL (3.87-14.7); Testosterone, Total 518 ng/dL (240-950)
== END 2024-09-15 03:22 | disposition home or self-care (01) ==
LOC: LOS 03:21
PROVIDERS: PCP Family Medicine; Visit Provider Family Medicine
DX: Z00.00 Encounter for general adult medical examination without abnormal findings (principal)
CPT/HCPCS: 36415; 84402; 84403

== ENCOUNTER 2024-11-18 08:49 | Outpatient (CLI) | payer BC, SELFPAY ==
[2024-11-18 12:26] LABS: HCT 46.2 % (40.0-50.0); HGB 15.3 g/dL (13.5-17.5); MCH 31.5 pg (27.0-33.0); MCHC 33.1 % (32.0-36.0); MCV 95 fL (80-95); MPV 9.8 fL (8.0-11.0); Platelet Count 236 10^3/uL (130-400); RBC 4.85 10^6/uL (4.36-5.78); RDW 12.3 % (11.8-14.1); RDW-SD 42.9 fL; WBC 6.54 10^3/uL (4.4-10.8)
[2024-11-18 12:47] LABS: Hemoglobin A1C 5.6 % (<5.7)
[2024-11-18 12:51] LABS: Iron 100 ug/dL (65-175)
[2024-11-18 19:40] LABS: HIV-1/2 Ag & Ab Screen Negative (Negative)
[2024-11-18 19:47] LABS: Hepatitis C Ab w Rflx HCV PCR Negative (Negative)
== END 2024-11-18 08:50 | disposition home or self-care (01) ==
LOC: LOS 08:49
PROVIDERS: PCP Family Medicine; Visit Provider Family Medicine
DX: R53.83 Other fatigue (principal); D64.9 Anemia, unspecified; Z00.00 Encounter for general adult medical examination without abnormal findings; R73.9 Hyperglycemia, unspecified; Z11.59 Encounter for screening for other viral diseases
CPT/HCPCS: 36415; 85027; 86803; 87389; 83036; 83540